=== PATIENT | female | born 1980 | race Caucasian/White ===

== ENCOUNTER 2017-02-05 11:06 | Inpatient (IN) | payer SELFPAY ==
[~2017-02-05] VITALS: Ht 165.1 cm; Wt 67.1 kg
--- NOTE | 2017-02-05 11:06 | NUR ---
Patient was BIBA at this time.
--- NOTE | 2017-02-05 11:14 | NUR ---
Patient ambulated to bed 02 from [facility], [place].
[2017-02-05 11:22] VITALS: BP 121/101
--- NOTE | 2017-02-05 11:34 | NUR ---
PATIENT PRESENTS TO ED DUE TO ABDOMINAL PAIN W/ N/V W/ BRIGHT RED BLOOD X 2 DAYS . PT STATES SHE HAS BLOOD ALSO IN HER STOOL.SKIN IS PINK/WARM/DRY; AAOX4 WITH EVEN AND STEADY GAIT; LUNGS CLEAR BL; HR EVEN AND REGULAR; PT DENIES ANY CP, SOB, OR COUGH AT THIS TIME; PATIENT STATES PAIN OF 10/10 AT THIS TIME;PATIENT POSITIONED FOR COMFORT; HOB ELEVATED; BEDRAILS UP X2; BED DOWN. ALL MONITORS IN PLACED;ER MD MADE AWARE OF PT STATUS.
--- NOTE | 2017-02-05 11:44 | NUR ---
PT HAS A PORT-A- CATH ON RT CHEST;FOR HER CHEMOTHERAPY;LAST ACCESS 1 1/2 MONTHS AGO;
--- NOTE | 2017-02-05 11:48 | NUR ---
PT UNABLE TO GIVE URINE AT THIS TIME;
--- NOTE | 2017-02-05 12:02 | NUR ---
Dr. Ochoa evaluating patient at bedside.
[2017-02-05] MEDS ORDERED: NACL 0.9% 1,000 ML IV ONE ×2 (12:15→21:45)
[2017-02-05] MEDS ORDERED: fentaNYL 0.05 MG/ML VIAL IVP ONE (12:15)
[2017-02-05] MEDS ORDERED: PANTOPRAZOLE 40 MG INJ VIAL IVP ONE (12:15)
--- NOTE | 2017-02-05 12:37 | NUR ---
LAB at bedside.
[2017-02-05 13:07] LABS: BASOPHILS # (AUTO) 0.2 K/uL (0.00-0.22); BASOPHILS % (AUTO) 3.5 % (0.0-2.0); EOSINOPHILS % (AUTO) 0.6 % (0.0-4.0); HEMATOCRIT 33.5 % (36-48); HEMOGLOBIN 11.4 g/dL (12.0-16.0); LYMPHOCYTES # (AUTO) 0.7 K/uL (2.5-16.5); LYMPHOCYTES % (AUTO) 13.8 % (20.5-51.1); MEAN CORPUSCULAR HEMOGLOBIN 30 pg (27-31); MEAN CORPUSCULAR HGB CONC 34 g/dL (33-37); MEAN CORPUSCULAR VOLUME 90 fL (80-94); MONOCYTES # (AUTO) 0.4 K/uL (0.8-1.0); NEUTROPHILS # (AUTO) 3.9 K/uL (1.8-7.7); NEUTROPHILS % (AUTO) 75.1 % (42.2-75.2); PLATELET COUNT (AUTO) 395 K/uL (140-450); RED BLOOD CELL COUNT(AUTO) 3.73 MIL/uL (4.20-5.40); RED CELL DISTRIBUTION WIDTH 17.4 % (11.6-13.7); WHITE BLOOD COUNT (AUTO) 5.2 K/uL (4.8-10.8)
[2017-02-05 13:24] LABS: ALBUMIN 3.3 g/dL (3.4-5.0); ASPARTATE AMINOTRANSFERASE 13 U/L (15-37); CARBON DIOXIDE 23.7 mmol/L (21-32); CHLORIDE 95 mmol/L (98-107); CREATININE 0.7 mg/dL (0.6-1.3); GFR ARICAN-AMERICAN 120 mL/min (>90); GLUCOSE 83 mg/dL (74-106); POTASSIUM 3.7 mmol/L (3.5-5.1); SODIUM SERUM 128 mmol/L (136-145); TOTAL BILIRUBIN 0.3 mg/dL (0.0-1.0); UREA NITROGEN, BLOOD 7 mg/dL (7-18)
[2017-02-05 13:29] LABS: SALICYLATE < 2.8 mg/dL (2.8-20.0)
[2017-02-05 13:30] LABS: ACETAMINOPHEN < 0.5 ug/ml (10-30)
[2017-02-05 13:41] LABS: BARBITURATE, URINE NEG. ng/ml (NEG <=200); BENZODIAZEPINE, URINE NEG. ng/mL (NEG <=200); CANNABINOID, URINE NEG. ng/mL (NEG <=50); COCAINE, URINE NEG. ng/mL (NEG <=300); OPIATE, URINE NEG. ng/mL (NEG <=2000); PHENCYCLIDINE SCREEN,URINE NEG. ng/mL (NEG <=25)
[2017-02-05] MEDS ORDERED: ONDANSETRON 4 MG/2 ML VIAL IVP ONE (13:50)
[2017-02-05] MEDS: NACL 0.9% 1,000 ML IV SCH (13:57)
[2017-02-05] MEDS ORDERED: HYDROcodone/APAP 7.5/325 MG 1 TAB PO PRN (14:00)
[2017-02-05] MEDS ORDERED: LORazepam 2 MG/ML VIAL IVP PRN (14:00)
[2017-02-05] MEDS ORDERED: LEVE750T25 PO (14:24)
[2017-02-05] MEDS ORDERED: LORA-476 PO (14:26)
--- NOTE | 2017-02-05 14:28 | NUR ---
TRIED TO GIVE REPORT;SUMA ESPINO ON BREAK;HE WILL CALL BACK AFTER HIS BREAK;
[2017-02-05 14:40] LABS: PROTHROMBIN TIME 10.2 secs (10.8-13.4)
[2017-02-05 14:47] LABS: APPEARANCE,URINE CLEAR (CLEAR); BILIRUBIN,URINE NEGATIVE (NEGATIVE); BLOOD, URINE NEGATIVE (NEGATIVE); COLOR,URINE ORANGE (YELLOW); LEUKOCYTE ESTERASE ,URINE NEGATIVE (NEGATIVE); NITRITE, URINE NEGATIVE (NEGATIVE); UGLUCOSE NEGATIVE (NEGATIVE)
[2017-02-05 14:53] LABS: AMYLASE 49 U/L (25-115); CHOL/HDL RATIO 2.4 (1-4.5); FREE T4 (FREE THYROXINE) 0.95 ng/dL (0.76-1.46); HDL CHOLESTEROL 74 mg/dL (40-60); LDL (CALC) 93 mg/dL (60-100); LIPASE 103 U/L (73-393); MAGNESIUM 2.1 mg/dL (1.8-2.4); PHOSPHORUS 3.4 mg/dL (2.5-4.9); THYROID STIMULATING HORMONE 0.16 uIU/mL (0.34-3.74); TRIGLYCERIDES 46 mg/dL (30-150)
--- NOTE | 2017-02-05 14:56 | NUR ---
Patient will be admitted to care of DR TERESA. Admited to TELE. Will go to room 104 B. Belongings list completed. Report to SUMA HUITRON.
[2017-02-05 15:10] VITALS: BP 129/74
--- NOTE | 2017-02-05 15:10 | NUR ---
RECEIVED PT ON ANDREA FROM ER. PT IS AAOX4 AND SHOWS NO S/S OF ACUTE DISTRESS ON ROOM AIR. ON TELE MONITOR. PT HAS PORTACATH ON THE RT UPPER CHEST PATENT AND INTACT WITH IVF'S INFUSING WELL. NOTED LEFT UPPER ARM ABSCESS; OTHERWISE, SKIN IS INTACT, WARM, DRY, AND GOOD TURGOR. PT STATED LBM WAS Sunday02/03/17. PT STATES CHRONIC ABD PAIN AND 10/10 LEFT UPPER ARM PAIN. PT WAS EXPLAINED POC FOR TODAY AND VERBALIZED UNDERSTANDING. THE BED IS IN LOW POSITION WITH CALL LIGHT WITHIN REACH.
[2017-02-05] MEDS ORDERED: diphenhydrAMINE 50 MG/ML VIAL IVP SCH (15:26)
[2017-02-05] MEDS: MORPHINE SULFATE 4 MG/ML SYR IVP PRN ×2 (15:43→20:09)
--- NOTE | 2017-02-05 15:43 | NUR ---
PT C/O ITCHINESS AND PAIN AT LEFT UPPER ARM 10/10. GAVE MORPHINE 4 MG IVP AND BENADRYL 25 MG IVP. WILL REASSESS PAIN IN 30 MIN.
--- NOTE | 2017-02-05 16:12 | NUR ---
PT STATES PAIN OF 6/10 LEFT UA PAIN.
[2017-02-05] MEDS ORDERED: ONDANSETRON 4 MG/2 ML VIAL IVP PRN (18:00)
--- NOTE | 2017-02-05 18:30 | NUR ---
PT IS AAOX4 AND SHOWS NO S/S OF ACUTE DISTRESS ON ROOM AIR. ALL OF PT'S NEEDS MET AT THIS TIME. WILL CONTINUE TO MONITOR.
--- NOTE | 2017-02-05 19:20 | NUR ---
RECEIVED PT FROM JOSE CRUZ MOISE PT IS AAOX4 RESTING ON BED PAD ON RAIL PRECAUTIONS FOR SEIZURES IV INFUSING WELL ON RT PORT CATH PT HAS ABSCESS ON LEFT UPPER ARM REDNESS ON TELEMETRY SR INITIAL ASSESSMENT DONE
--- NOTE | 2017-02-05 19:20 | NUR ---
GAVE PT REPORT AT BEDSIDE TO NIGHT NURSE. PT ENDORSED IN STABLE CONDITION.
[2017-02-05 20:00] VITALS: BP 112/80
--- NOTE | 2017-02-05 20:00 | NUR ---
DR FIELD WAS NOTIFY PT CONDITION AND DR FIELD IS GETTING READY FOR INCISION AND DRAINAGE ON LEFT UPPER ARM ABSCESS
[2017-02-05] MEDS: DOCUSATE SODIUM 100 MG GELCAP PO SCH (20:10)
[2017-02-05] MEDS: LORazepam 1 MG TAB PO SCH (20:11)
[2017-02-05] MEDS: levETIRAcetam 500 MG TAB PO SCH (20:11)
[2017-02-05] MEDS: CLINDAMYCIN 600 MG in DEXTROSE 5% 50 ML IV SCH (20:12)
[2017-02-05] MEDS ORDERED: LIDOCAINE 1% 50 ML ONE (20:25)
[2017-02-05] MEDS ORDERED: CLINDAMYCIN 600 MG in DEXTROSE 5% 50 ML IV SCH (21:00)
--- NOTE | 2017-02-05 21:19 | NUR ---
PT WAS CALLED RAPID RESPOND AFTER PT WAS GIVEN LIDOCAINE1% 2 ML SUBQ FOR PREPARATION OF INCISION AND DRAINAGE OF LEFT UPPER ARM ABSCESS, SWEATING AND BLOOD PRESSURE DROP OFF TO 82/39 AND HR 34 PT WAS ALERT RESPONDING TO COMMANDS AND REPOSITIONED IN TRENDELENBURG AND IV FLUIDS BOLUS GIVEN ORDER AND O2 FINISHED GOODS STOCK CL[facility] NURSES AND ICU NURSES AND CHARGE NURSE AT BED SIDE
--- NOTE | 2017-02-05 21:25 | NUR ---
TELEMETRY BACK TO SR HR 61 AND BLOOD PRESSURE 106/62, 02 SAT 100% PT SEEM MORE STBLE AT THIS TIME
--- NOTE | 2017-02-05 22:00 | NUR ---
PT REFUSED TO BE DRAW BLOOD DR CASTORENA AWARE
[2017-02-05] MEDS: QUEtiapine FUMARATE 100 MG TAB PO SCH ×2 (22:40→23:17)
[2017-02-05] MEDS ORDERED: LACTULOSE 20 GM/30 ML UDC PO SCH (23:10)
[2017-02-05] MEDS: LACTULOSE 20 GM/30 ML UDC PO SCH (23:18)
[2017-02-05] MEDS: ACETAMINOPHEN 325 MG TAB PO PRN (23:18)
--- NOTE | 2017-02-05 23:19 | NUR ---
PT VERBALIZED TO WILL TAKE SEROQUEL AND AT THE TIME TO GIVE IT SHE THROUGH IT AWAY TO THE FLOOR CHARGE NURSE AWRE SUSAN SUSAN MEDIC WAS WASTE
--- NOTE | 2017-02-06 | NUR ---
PT SLEEPING QUIET, ON TELEMETRY SR HR 79 , 02 SAT 99%PT REFUSED TO BE TAKEN BLOOD PRESSURE
[2017-02-06 02:06] VITALS: BP 119/78
[2017-02-06] MEDS: MORPHINE SULFATE 4 MG/ML SYR IVP PRN ×3 (02:16→11:00)
[2017-02-06] MEDS: NACL 0.9% 1,000 ML IV SCH ×3 (02:50→20:47)
--- NOTE | 2017-02-06 03:45 | NUR ---
after pain medic givern pt on deep sleep, , on telemetry sr pt npo for egd this am and i and d of left upper arm
[2017-02-06] MEDS: CLINDAMYCIN 600 MG in DEXTROSE 5% 50 ML IV SCH ×3 (04:40→21:55)
[2017-02-06 06:47] LABS: BASOPHILS # (AUTO) 0.1 K/uL (0.00-0.22); BASOPHILS % (AUTO) 1.5 % (0.0-2.0); EOSINOPHILS % (AUTO) 0.8 % (0.0-4.0); HEMATOCRIT 31.6 % (36-48); HEMOGLOBIN 10.3 g/dL (12.0-16.0); LYMPHOCYTES # (AUTO) 0.6 K/uL (2.5-16.5); LYMPHOCYTES % (AUTO) 14.4 % (20.5-51.1); MEAN CORPUSCULAR HEMOGLOBIN 30 pg (27-31); MEAN CORPUSCULAR HGB CONC 33 g/dL (33-37); MEAN CORPUSCULAR VOLUME 91 fL (80-94); MONOCYTES # (AUTO) 0.4 K/uL (0.8-1.0); MONOCYTES % (AUTO) 8.4 % (1.7-9.3); NEUTROPHILS # (AUTO) 3.2 K/uL (1.8-7.7); NEUTROPHILS % (AUTO) 74.9 % (42.2-75.2); PLATELET COUNT (AUTO) 357 K/uL (140-450); RED BLOOD CELL COUNT(AUTO) 3.46 MIL/uL (4.20-5.40); WHITE BLOOD COUNT (AUTO) 4.3 K/uL (4.8-10.8)
[2017-02-06] MEDS: LORazepam 1 MG TAB PO SCH ×3 (06:53→21:00)
--- NOTE | 2017-02-06 07:03 | NUR ---
PAIN MEDIC GIVEN PT WILL BE ENDORSED TO DAY SHIFT NURSE TO CONTINUITY OF CARE PT NPO FOR EGD
[2017-02-06 07:06] LABS: ANION GAP 13.2 (8-16); CARBON DIOXIDE 21.5 mmol/L (21-32); CREATININE 0.7 mg/dL (0.6-1.3); POTASSIUM 4.7 mmol/L (3.5-5.1)
--- NOTE | 2017-02-06 07:10 | NUR ---
RECEIVED PATIENT REPORT AT BEDSIDE. PATIENT AWAKE, ALERT AND ORIENTED. NO S/S OF DISTRESS NOTED. NO ACTIVE VOMITING AT THIS MOMENT. LJ CATH NOTED ON THE RIGHT UPPER CHEST WITH IVF INFUSING WELL. ABSCESS NOTED ON THE LEFT PER ARM. PATIENT ON SEIZURE PRECAUTION. PATIENT ON TELE MONITORING. BED LOWERED WITH CALL LIGHT WITHIN REACH. WILL CONTINUE TO MONITOR
[2017-02-06 07:19] LABS: PHOSPHORUS 4.9 mg/dL (2.5-4.9)
[2017-02-06 07:46] VITALS: BP 90/60
[2017-02-06] MEDS ORDERED: diphenhydrAMINE 50 MG/ML VIAL IVP SCH ×3 (08:10→21:00)
[2017-02-06] MEDS: QUEtiapine FUMARATE 100 MG TAB PO SCH ×2 (08:24→21:00)
[2017-02-06] MEDS: LACTULOSE 20 GM/30 ML UDC PO SCH ×2 (08:24→17:00)
[2017-02-06] MEDS: levETIRAcetam 500 MG TAB PO SCH ×2 (08:26→21:00)
[2017-02-06] MEDS: LACTOBACILLUS RHAMNOSUS GG 1 EACH CAP PO SCH (08:26)
[2017-02-06] MEDS: DOCUSATE SODIUM 100 MG GELCAP PO SCH (08:27)
[2017-02-06] MEDS: MULTIVITAMIN 1 TAB PO SCH (09:00)
[2017-02-06] MEDS: FOLIC ACID 1 MG TAB PO SCH (09:00)
[2017-02-06] MEDS ORDERED: PANTOPRAZOLE 40 MG INJ VIAL IVP SCH (09:00)
[2017-02-06] MEDS: THIAMINE 100 MG TAB PO SCH (09:00)
--- NOTE | 2017-02-06 10:07 | NUR ---
PATIENT HAS BEEN SCREENED AND CATEGORIZED HIGH NUTRITION RISK. PATIENT WILL BE SEEN WITHIN 1-2 DAYS OF ADMISSION. 02/06/17-02/07/[address]
[2017-02-06 12:00] VITALS: BP 103/77
--- NOTE | 2017-02-06 13:45 | NUR ---
PATIENT LEFT THE UNIT FOR EGD
[2017-02-06] MEDS ORDERED: diphenhydrAMINE 50 MG/ML VIAL ONE (13:50)
[2017-02-06] MEDS ORDERED: fentaNYL 0.05 MG/ML VIAL ONE ×2 (13:52)
[2017-02-06] MEDS ORDERED: MIDAZOLAM 2 MG/2 ML VIAL ONE (13:52)
--- NOTE | 2017-02-06 14:39 | NUR ---
02/06/17 RD INITIAL ASSESSMENT COMPLETED PLEASE REFER TO NUTRITION ASSESSMENT UNDER CARE ACTIVITY FOR ESTIMATED NUTRITIONAL NEEDS. 1. CONTINUE NPO MEDICALLY NECESSARY PER MD 2. WHEN MEDICALLY APPROPRIATE CONSIDER ADVANCE DIET TO REGULAR 3. ENCOURAGE INCREASED PO INTAKES 4. RD TO FOLLOW-UP 3-5 DAYS, MODERATE RISK DHRUV PRYOR, RD
[2017-02-06] MEDS ORDERED: MIDAZOLAM 2 MG/2 ML VIAL IVP ONE (14:40)
[2017-02-06] MEDS ORDERED: fentaNYL 0.05 MG/ML VIAL IVP ONE (14:40)
[2017-02-06] MEDS ORDERED: diphenhydrAMINE 50 MG/ML VIAL IVP ONE (14:40)
[2017-02-06] MEDS ORDERED: LIDOCAINE 1% 500 MG/50 ML VIAL INJ SCH (15:25)
[2017-02-06] MEDS: LORazepam 2 MG/ML VIAL IM/IVP PRN ×3 (15:52→22:00)
[2017-02-06 16:00] VITALS: BP 112/71
[2017-02-06] MEDS ORDERED: HYDROmorphone PFS 4 MG/ML SYR IVP SCH (16:00)
--- NOTE | 2017-02-06 16:10 | NUR ---
INCISION AND DRAINAGE OF LEFT UPPER ARM ABSCESS DONE AT BEDSIDE BY DR FLORES
[2017-02-06] MEDS: PREGABALIN 50 MG CAP PO SCH (16:59)
[2017-02-06] MEDS ORDERED: PREGABALIN 50 MG CAP PO SCH (17:00)
[2017-02-06] MEDS ORDERED: ZOLPIDEM 5 MG TAB PO PRN (17:50)
--- NOTE | 2017-02-06 19:26 | NUR ---
RECEIVED REPORT FROM DAY NURSE, PT IN STABLE CONDITION. PT IS IN STABLE CONDITION. PT IS AAOX4, ON RA AT THIS TIME. PT HAS RT CHEST PORT CATH PATENT AND INTACT. L ARM S/P I&D WITH DRESSING DRY AND INTACT. RESPIRATIONS ARE EVEN AND UNLABORED, BOWEL SOUNDS PRESENT. SKIN IS WARM AND DRY TO TOUCH, INITIAL ASSESSMENT COMPLETED, PLAN OF CARE DISCUSSED WITH PT AT THE BEDSIDE VERBALIZED UNDERSTANDING. ALL SAFETY PRECAUTIONS MET, CALL LIGHT WITHIN REACH
[2017-02-06 20:00] VITALS: BP 111/62
[2017-02-06] MEDS ORDERED: LORazepam 2 MG/ML VIAL IVP SCH (20:45)
[2017-02-06] MEDS ORDERED: HALOPERIDOL IM 5 MG/ML VIAL IM SCH (20:45)
--- NOTE | 2017-02-06 20:55 | NUR ---
PT COMBATIVE, RUNNING AROUND THE UNIT YELLING AND SCREAMING STATING, "I CAN'T SWALLOW." PT YELLING VERBAL SLURS AND NOT COOPERATIVE.
[2017-02-06] MEDS: AMITRIPTYLINE 25 MG TAB PO SCH (21:00)
[2017-02-06] MEDS: ZOLPIDEM 5 MG TAB PO SCH (21:00)
--- NOTE | 2017-02-06 21:00 | NUR ---
CODE MICHAEL CALLED, PT COMBATIVE AT THIS TIME, PUSHING AND YELLING
--- NOTE | 2017-02-06 21:45 | NUR ---
PT REFUSED HALOPERIDOL, PT PT REFUSES ALL MEDICATION EXCEPT ATIVAN AT THIS TIME
[2017-02-06] MEDS ORDERED: HYDROmorphone PFS 2 MG/ML SYR IVP PRN (22:00)
--- NOTE | 2017-02-06 22:00 | NUR ---
DR FIELD AT BEDSIDE. PT YELLING AND COMBATIVE TO STAFF, AGREED TO TAKE ATIVAN IVP, STATING "I WANT ATIVAN." ADMINISTERED ATIVAN IVP WITH EDUCATION FOR AGITATION PER DR FIELD. PT TOLERATED WELL.
--- NOTE | 2017-02-06 22:01 | NUR ---
PT REFUSES TO SWALLOW ALL PO MEDICATION AND STATES, "THE PILLS GO TO THE BACK OF MY HEAD AND EYEBALLS, I FORGOT HOW TO SWALLOW."
[2017-02-07] VITALS: BP 106/72
[2017-02-07] MEDS ORDERED: MORPHINE SULFATE 2 MG/ML SYR IVP ONE (00:50)
--- NOTE | 2017-02-07 01:00 | NUR ---
PT PACING UNIT YELLING FOR MEDICATION THAT SHE DOES NOT HAVE ORDERED. PT BEING UNCOOPERATIVE AND COMBATIVE, PT AT MY COMPUTER YELLING
[2017-02-07] MEDS ORDERED: MORPHINE SULFATE 2 MG/ML SYR ONE (01:01)
[2017-02-07] MEDS: ZOLPIDEM 5 MG TAB PO SCH (01:12)
--- NOTE | 2017-02-07 01:13 | NUR ---
CHARGE NURSE JAY JAY IN ROOM TO GIVE MORPHINE PER DR. FIELD ORDERS AT THE BEDSIDE
[2017-02-07] MEDS: LORazepam 2 MG/ML VIAL IM/IVP PRN (01:44)
--- NOTE | 2017-02-07 01:52 | NUR ---
DR. FIELD ORDERED TO GIVE ATIVAN AND RANDAL
[2017-02-07] MEDS ORDERED: diphenhydrAMINE 50 MG/ML VIAL IVP ONE ×2 (01:55→02:55)
--- NOTE | 2017-02-07 02:15 | NUR ---
PT COMBATIVE RUNNING DOWN HALLWAY YELLING "I WILL KICK HER ASS!" PT CHASING AFTER JALIL CARRILLO. PT TRYING TO BE COMBATIVE WITH JALIL CARRILLO, PT WILL NOT COOPERATE. PT YELLING AND CUSSING IN HALLWAYS
--- NOTE | 2017-02-07 02:17 | NUR ---
SOPHIE RODRIGUEZ CALLED AGAIN. SECURITY WITH PT
--- NOTE | 2017-02-07 02:30 | NUR ---
FURNITURE SALESPERSON TAWANDA BURNS Addendum: 02/07/17 at 0436 by Jazmine Mcarthur RN CORRECTION: POLICE DEPARTMENT CALLED TO SPEAK WITH TAWANDA
--- NOTE | 2017-02-07 02:52 | NUR ---
POLICE HERE WITH PT
[2017-02-07] MEDS ORDERED: LORazepam 2 MG/ML VIAL IM/IVP ONE (02:55)
[2017-02-07] MEDS ORDERED: HALOPERIDOL IM 5 MG/ML VIAL IM ONE (02:55)
--- NOTE | 2017-02-07 03:30 | NUR ---
PT STILL CONTINUES TO WALK UNIT YELLING AND BEING UNCOOPERATIVE. PT IS NAKED AND WALKING AROUND.
[2017-02-07 04:00] VITALS: BP 102/62
[2017-02-07] MEDS: oxyCODONE/APAP 5/325 MG 1 TAB TAB PO PRN ×3 (04:06→17:29)
[2017-02-07] MEDS: CLINDAMYCIN 600 MG in DEXTROSE 5% 50 ML IV SCH ×3 (05:27→21:31)
[2017-02-07] MEDS: LORazepam 1 MG TAB PO SCH ×3 (05:27→21:30)
[2017-02-07] MEDS: NACL 0.9% 1,000 ML IV SCH (07:33)
--- NOTE | 2017-02-07 07:33 | NUR ---
REPORT GIVEN TO DAY NURSE AT THE BEDSIDE FOR CONTINUITY OF CARE, PT IN STABLE CONDITION
--- NOTE | 2017-02-07 07:33 | NUR ---
REPORT RECEIVED FROM NIGHT RN, PT ASLEEP IN BED ON ROOM AIR, NO S/S OF ACUTE DISTRESS, IV PATENT AND INTACT, SAFETY PRECAUTIONS TAKEN, CALL LIGHT WITHIN REACH.
[2017-02-07 08:00] VITALS: BP 110/68
[2017-02-07] MEDS ORDERED: DIAZEPAM PFS 10 MG/2 ML SYR IVP PRN ×2 (08:10→11:15)
[2017-02-07] MEDS: FOLIC ACID 1 MG TAB PO SCH (08:26)
[2017-02-07] MEDS: levETIRAcetam 500 MG TAB PO SCH ×2 (08:27→21:31)
[2017-02-07] MEDS: PREGABALIN 50 MG CAP PO SCH ×3 (08:27→16:48)
[2017-02-07] MEDS: LACTULOSE 20 GM/30 ML UDC PO SCH ×3 (08:28→16:48)
[2017-02-07] MEDS: LACTOBACILLUS RHAMNOSUS GG 1 EACH CAP PO SCH (08:28)
[2017-02-07] MEDS: THIAMINE 100 MG TAB PO SCH (08:39)
[2017-02-07] MEDS: MULTIVITAMIN 1 TAB PO SCH (08:39)
[2017-02-07] MEDS: QUEtiapine FUMARATE 100 MG TAB PO SCH ×2 (08:39→21:31)
--- NOTE | 2017-02-07 08:41 | NUR ---
AM MEDICATIONS GIVEN. PT REFUSED VITAMINS, PROTONIX AND SEROQUEL. PT STATES SHE FEELS ANXIOUS. NO S/S OF ACUTE DISTRESS. VALIUM GIVEN ORDERED. WILL CONTINUE TO MONITOR.
--- NOTE | 2017-02-07 10:18 | NUR ---
PT STATES SHE WANTS TO SPEAK TO MD. DR. PAREKH MADE AWARE. PT STATES SHE IS IN PAIN. PAIN MEDICATION GIVEN. WILL CONTINUE TO MONITOR
[2017-02-07] MEDS: diphenhydrAMINE 50 MG CAP PO PRN ×2 (11:16→17:29)
[2017-02-07] MEDS ORDERED: HALOPERIDOL IM 5 MG/ML VIAL IM PRN (11:20)
--- NOTE | 2017-02-07 13:05 | NUR ---
PT SLEEPING IN BED. NO S/S OF ACUTE DISTRESS. WILL CONTINUE TO MONITOR.
[2017-02-07 16:00] VITALS: BP 109/79
[2017-02-07] MEDS: DIAZEPAM PFS 10 MG/2 ML SYR IVP PRN ×2 (16:47→21:48)
--- NOTE | 2017-02-07 17:20 | NUR ---
CR. LAUREN IN TO SEE PT
--- NOTE | 2017-02-07 19:15 | NUR ---
ENDORSED CARE TO NIGHT RN, PT IN STABLE CONDITION.
--- NOTE | 2017-02-07 19:20 | NUR ---
RECEIVED REPORT FROM DAY SHIFT NURSE. PT LYING IN BED, CALM AND COMFORTABLE. AAOX4. PORT-A-CATH TO RIGHT UPPER CHEST. DRESSING TO LEFT UPPER ARM. . DISCUSSED PLAN OF CARE, PT VERBALIZED UNDERSTANDING. SAFETY PRECAUTION IN PLACE. CALL LIGHT WITHIN REACH.
[2017-02-07] MEDS: AMITRIPTYLINE 25 MG TAB PO SCH (21:31)
--- NOTE | 2017-02-07 21:50 | NUR ---
PT ASKED FOR VALIUM. PT STATED SHE FEELS ANXIOUS AND NEED VALIUM BADLY. VALIUM GIVEN ORDERED.
--- NOTE | 2017-02-07 22:00 | NUR ---
PT REFUSED CHANGE OF DRESSING TO LEFT UPPER ARM.
--- NOTE | 2017-02-08 00:10 | NUR ---
PT IN BED. NO C/O PAIN OR DISCOMFORT. ALL NEEDS MET AT THIS TIME. CALL LIGHT WITHIN REACH.
--- NOTE | 2017-02-08 02:06 | NUR ---
PT IN BED WATCHING TV. NO DISTRESS NOTED. ALLL NEEDS MET AT THIS TIME. CALL LIGHT WITHIN REACH.
[2017-02-08 04:00] VITALS: BP 110/72
[2017-02-08] MEDS: DIAZEPAM PFS 10 MG/2 ML SYR IVP PRN (04:36)
[2017-02-08] MEDS: diphenhydrAMINE 50 MG CAP PO PRN (04:37)
[2017-02-08] MEDS: oxyCODONE/APAP 5/325 MG 1 TAB TAB PO PRN ×2 (04:37→10:54)
[2017-02-08] MEDS: CLINDAMYCIN 600 MG in DEXTROSE 5% 50 ML IV SCH (04:39)
--- NOTE | 2017-02-08 04:47 | NUR ---
PT STATED SHE'S ANXIOUS AND ITCHY. VALIUM AND BENADRYL GIVEN ORDERED.
[2017-02-08] MEDS ORDERED: PANTOPRAZOLE 40 MG TABEC PO SCH (06:30)
[2017-02-08] MEDS ORDERED: QUET100T44 PO (07:05)
[2017-02-08] MEDS ORDERED: PANT40EC28 PO (07:05)
[2017-02-08] MEDS ORDERED: ACET-9494 PO (07:05)
[2017-02-08] MEDS ORDERED: LACT10CA PO (07:05)
[2017-02-08] MEDS ORDERED: LYR50 PO (07:05)
[2017-02-08] MEDS ORDERED: ELA25 PO (07:05)
[2017-02-08] MEDS ORDERED: DIAZ2TAB6 PO (07:06)
[2017-02-08] MEDS ORDERED: CLIN300C2 PO (07:10)
--- NOTE | 2017-02-08 07:20 | NUR ---
ENDORSED PT TO DAY SHIFT NURSE. PT IN STABLE CONDITION.
--- NOTE | 2017-02-08 07:21 | NUR ---
RECEIVED REPORT FROM THE CLERK SECRETARY NURSE FOR CONTINUITY OF CARE. PT IS AWAKE AND ALERT. SHE IS ROAMING THE HALLS WITH HER IV POLE, LOOKING FOR A RN, STATING SHE NEEDS HER MEDICATIONS. PT HAS A L UA DRESSING, SOILED. I WILL SEE IF SHE WILL ALLOW ME TO DO THE DRESSING CHANGE. SHE HAS A R CHEST PORT-A-CATH TKO. PLAN FOR TODAY: D/C TODAY. ALERT SECURITY. WILL CONTINUE TO MONITOR PT.
[2017-02-08] MEDS ORDERED: LACT10SO1 PO (07:48)
[2017-02-08] MEDS: PREGABALIN 50 MG CAP PO SCH (08:04)
[2017-02-08] MEDS: levETIRAcetam 500 MG TAB PO SCH (08:05)
[2017-02-08] MEDS: LACTULOSE 20 GM/30 ML UDC PO SCH (08:05)
[2017-02-08] MEDS: QUEtiapine FUMARATE 100 MG TAB PO SCH (08:06)
[2017-02-08] MEDS: LACTOBACILLUS RHAMNOSUS GG 1 EACH CAP PO SCH (08:06)
--- NOTE | 2017-02-08 08:15 | NUR ---
ADMINISTERED MORNING MEDS. PT TOLERATED WELL. SHE WAS REQUESTING THE VALIUM, PERCOCET, AND BENADRYL. NOT TIME YET. PT REQUESTED TYLENOL FOR MIKE. WILL ADMINISTER.
[2017-02-08] MEDS: ACETAMINOPHEN 325 MG TAB PO PRN (08:21)
--- NOTE | 2017-02-08 08:25 | NUR ---
ADMINISTERED TYLENOL FOR MIKE. PT TOLERATED WELL. WILL CONTINUE TO MONITOR.
--- NOTE | 2017-02-08 11:00 | NUR ---
REFUSED D/C INSTRUCTIONS. REFUSED TO SIGN PAPER WORK. ONLY INTERESTED IN RX. WENT OVER THE RX THAT WROTE. REMOVED NEEDLE FROM PORT-A-CATH. ISLAND DRESSING ON. CHANGED DRESSING ON L UPPER ARM. REMOVED ARM BAND. REFUSED WOUND CARE. REFUSED PICTURE. PT VERBALLY ABUSIVE. "GET OUT OF MY ROOM NOW." CALLED SECURITY FOR ASSISTANCE. ASKED HER TO GET DRESSED.
--- NOTE | 2017-02-08 11:20 | NUR ---
PT ESCORTED OUT INTO THE LOBBY BY 2 SECURITY GUARDS AND MYSELF. WHEELED CHAIRED HER OUT INTO THE FRONT OF THE HOSPITAL. PT HAS HER D/C PACKET, RX, AND 2 BUS VOUCHERS IN HAND. ALL PERSONAL BELONGINGS WITH HER. PT IN STABLE CONDITION.
[2017-02-09 12:24] LABS: FOLIC ACID 11.2 ng/mL (>3.0)
== END 2017-02-08 11:20 | disposition home or self-care (01) | DRG 377 ==
LOC: MED 11:06 → MTU 14:00
PROVIDERS: ADMIT Family Medicine; ATTEND Family Medicine
PROC: 0DB68ZX Excision of Stomach, Via Natural or Artificial Opening Endoscopic, Diagnostic (ICD-10-PCS; principal; 2017-02-07)
DX: K92.0 Hematemesis (principal); G93.41 Metabolic encephalopathy; E44.0 Moderate protein-calorie malnutrition; E87.1 Hypo-osmolality and hyponatremia; E83.51 Hypocalcemia; F11.20 Opioid dependence, uncomplicated; F31.64 Bipolar disorder, current episode mixed, severe, with psychotic features; R45.851 Suicidal ideations; D62 Acute posthemorrhagic anemia; L02.414 Cutaneous abscess of left upper limb; F15.129 Other stimulant abuse with intoxication, unspecified; K20.9 Esophagitis, unspecified; F60.3 Borderline personality disorder; F17.210 Nicotine dependence, cigarettes, uncomplicated; T41.3X5A Adverse effect of local anesthetics, initial encounter; G89.29 Other chronic pain; G40.909 Epilepsy, unspecified, not intractable, without status epilepticus; M79.7 Fibromyalgia; Z88.0 Allergy status to penicillin; Z88.8 Allergy status to other drugs, medicaments and biological substances; Z85.038 Personal history of other malignant neoplasm of large intestine; Z68.24 Body mass index [BMI] 24.0-24.9, adult; Z91.14 Patient's other noncompliance with medication regimen; Z59.0 Homelessness; Z90.49 Acquired absence of other specified parts of digestive tract; Z90.722 Acquired absence of ovaries, bilateral; Z85.830 Personal history of malignant neoplasm of bone; Z15.09 Genetic susceptibility to other malignant neoplasm; Y92.89 Other specified places as the place of occurrence of the external cause
CPT/HCPCS: 36415; 71010; 76536; 80048; 80053; 80173; 80305; 81003; 82140; 82150; 82607; 82728; 82746; 82948; 83036; 83540; 83690; 83735; 83880; 84100; 84439; 84443; 84484; 85025; 85045; 85610; 85730; 86677; 87040; 87070; 87075; 87081; 93005; 96361; 96374; 96375; 99285; C9113; G0480; G0482; J1170; J1200; J1630; J2001; J2060; J2250; J2270; J2405; J3010; J3360; J3490; J7030; J7060; Q0092; Q0163

== ENCOUNTER 2017-02-08 12:02 | Inpatient (IN) | payer SELFPAY ==
[~2017-02-08] VITALS: Ht 165.1 cm; Wt 65.3 kg
[~2017-02-08 12:02] MED LIST: ACET-9494 PO; CLIN300C2 PO; DIAZ2TAB6 PO; ELA25 PO; LACT10CA PO; LACT10SO1 PO; LEVE750T25 PO; LORA-476 PO; LYR50 PO; PANT40EC28 PO; QUET100T44 PO
[2017-02-08 12:31] VITALS: BP 123/64
--- NOTE | 2017-02-08 12:32 | NUR ---
37/F BIBA PER PATIENT JUST GOT DISCHARGED FROM [facility] X TODAY.PATIENT STATED SHE IS SUICIDAL,WOULD GO ONTO TRAFFIC AND WILL HURT HERSELF. PER PATIENT,NOT TAKING ANY MEDS. KELL MADE AWARE.RT. UPPER CHEST PORTACATH.SKIN INFECTION LT. UPPER ARM.HX: EPILEPSY,COLON CANCER,HYSTERECTOMY. DENIES N/V/D; SKIN IS PINK/WARM/DRY; AAOX4 WITH EVEN AND STEADY GAIT; LUNGS CLEAR BL; PT DENIES ANY FEVER, CP, SOB, OR COUGH AT THIS TIME; PATIENT STATES PAIN OF 0/10 AT THIS TIME; PATIENT POSITIONED FOR COMFORT; HOB ELEVATED; BEDRAILS UP X2; BED DOWN. ER MADE AWARE OF PT STATUS. Addendum: 02/08/17 at 1454 by [email or web address] L SHOULDER I&D WOUND COVER WITH GAUZE.
--- NOTE | 2017-02-08 13:39 | NUR ---
Patient appears to be SLEEPING comfortably in bed. BP 103/60, P 118/MINS, Respirations even and unlabored.WILL CONTINUE TO MONITOR.
[2017-02-08 13:49] LABS: ANION GAP 13.2 (8-16); CHLORIDE 103 mmol/L (98-107); CREATININE 0.9 mg/dL (0.6-1.3); GFR ARICAN-AMERICAN 90 mL/min (>90); GLUCOSE 117 mg/dL (74-106); POTASSIUM 4.2 mmol/L (3.5-5.1); SODIUM SERUM 139 mmol/L (136-145); UREA NITROGEN, BLOOD 18 mg/dL (7-18)
--- NOTE | 2017-02-08 13:50 | NUR ---
PT DRANK 1/2 CUP OF WATER & 1 BOTTLE OF APPLE JUICE. DENIES N/V.
[2017-02-08 13:53] LABS: BASOPHILS # (AUTO) 0.4 K/uL (0.00-0.22); BASOPHILS % (AUTO) 3.5 % (0.0-2.0); EOSINOPHILS # (AUTO) 0.1 K/uL (0-0.4); EOSINOPHILS % (AUTO) 0.8 % (0.0-4.0); HEMOGLOBIN 9.2 g/dL (12.0-16.0); LYMPHOCYTES # (AUTO) 0.7 K/uL (2.5-16.5); LYMPHOCYTES % (AUTO) 6.1 % (20.5-51.1); MEAN CORPUSCULAR HEMOGLOBIN 30 pg (27-31); MEAN CORPUSCULAR HGB CONC 33 g/dL (33-37); MEAN CORPUSCULAR VOLUME 92 fL (80-94); MONOCYTES # (AUTO) 0.2 K/uL (0.8-1.0); MONOCYTES % (AUTO) 1.6 % (1.7-9.3); NEUTROPHILS # (AUTO) 10.1 K/uL (1.8-7.7); PLATELET COUNT (AUTO) 282 K/uL (140-450); RED BLOOD CELL COUNT(AUTO) 3.06 MIL/uL (4.20-5.40); RED CELL DISTRIBUTION WIDTH 17.7 % (11.6-13.7); WHITE BLOOD COUNT (AUTO) 11.5 K/uL (4.8-10.8)
[2017-02-08 13:55] LABS: ACETAMINOPHEN 8.3 ug/ml (10-30); ALBUMIN 2.5 g/dL (3.4-5.0); ASPARTATE AMINOTRANSFERASE 12 U/L (15-37); TOTAL BILIRUBIN 0.1 mg/dL (0.0-1.0)
[2017-02-08 13:56] LABS: SALICYLATE < 2.8 mg/dL (2.8-20.0)
--- NOTE | 2017-02-08 14:00 | NUR ---
RADHA BROUSSARD FOR ; PT REFUED. NOTIFIED DR WEINBERG. Addendum: 02/08/17 at 1412 by [email or web address] PT STATED " DON'T TOUCH ME".
--- NOTE | 2017-02-08 14:43 | NUR ---
EVERETTE CATH; SENT URINE SPECIMEN TO LAB.
[2017-02-08] MEDS ORDERED: NACL 0.9% 1,000 ML IV ONE (14:55)
[2017-02-08] MEDS ORDERED: ONDANSETRON 4 MG/2 ML VIAL IVP ONE (14:55)
[2017-02-08] MEDS ORDERED: MORPHINE SULFATE 4 MG/ML SYR IVP ONE (14:55)
[2017-02-08] MEDS ORDERED: ONDANSETRON 4 MG/2 ML VIAL IVP PRN (15:00)
[2017-02-08] MEDS ORDERED: ACETAMINOPHEN 325 MG TAB PO PRN (15:00)
[2017-02-08 15:10] LABS: APPEARANCE,URINE CLEAR (CLEAR); BILIRUBIN,URINE NEGATIVE (NEGATIVE); BLOOD, URINE NEGATIVE (NEGATIVE); COLOR,URINE YELLOW (YELLOW); LEUKOCYTE ESTERASE ,URINE TRACE (NEGATIVE); NITRITE, URINE NEGATIVE (NEGATIVE); PH,URINE 6.5 (5.0-9.0); UGLUCOSE NEGATIVE (NEGATIVE)
[2017-02-08 15:24] LABS: BARBITURATE, URINE NEG. ng/ml (NEG <=200); BENZODIAZEPINE, URINE POS. ng/mL (NEG <=200); CANNABINOID, URINE NEG. ng/mL (NEG <=50); COCAINE, URINE NEG. ng/mL (NEG <=300); OPIATE, URINE NEG. ng/mL (NEG <=2000); PHENCYCLIDINE SCREEN,URINE NEG. ng/mL (NEG <=25)
[2017-02-08 15:31] LABS: RBC,URINE 0-5 (RARE) /HPF (0-5); WBC,URINE 0-5 (RARE) /HPF (0-5)
[2017-02-08] MEDS ORDERED: VANCOMYCIN 1,000 MG in DEXTROSE 5% 250 ML IV ONE (15:35)
--- NOTE | 2017-02-08 15:35 | NUR ---
GAVE REPORT TO NORMAN MOISE.
[2017-02-08 15:36] LABS: CHOL/HDL RATIO 3.6 (1-4.5); FREE T4 (FREE THYROXINE) 0.86 ng/dL (0.76-1.46); MAGNESIUM 1.4 mg/dL (1.8-2.4); PHOSPHORUS 4.2 mg/dL (2.5-4.9); THYROID STIMULATING HORMONE 0.45 uIU/mL (0.34-3.74)
[2017-02-08 15:44] LABS: PROTHROMBIN TIME 9.4 secs (10.8-13.4)
[2017-02-08] MEDS ORDERED: VANCOMYCIN 1,000 MG VIAL ONE (15:53)
--- NOTE | 2017-02-08 15:59 | NUR ---
Patient will be admitted to care of DR TERESA. Admited to MS. Will go to room 104B. Belongings list completed. Report to KAY WHITESIDE.
[2017-02-08] MEDS ORDERED: diphenhydrAMINE 50 MG/ML VIAL IVP ONE (16:10)
[2017-02-08] MEDS ORDERED: MAG SULF 2000 MG/WATER PREMIX 50 ML IV ONE (16:10)
[2017-02-08 16:45] VITALS: BP 100/62
--- NOTE | 2017-02-08 16:45 | NUR ---
RECEIVED PT FROM ER. ASSISTED BY ER STAFF PER ANDREA. PT ASLEEP. NO SOB NOTED. AROUSABLE TO VOICE. ALERT ORIENTEDX3. DENIES ANY PAIN OR DISCOMFORT AT THIS TIME. PT AMBULATORY. SAFETY PRECAUTION IN PLACE. CALL LIGHT WITHIN REACH.
[2017-02-08] MEDS: NACL 0.9% 1,000 ML IV SCH (16:50)
--- NOTE | 2017-02-08 18:43 | NUR ---
PT KEPT CLEAN, DRY AND COMFORTABLE, NEEDS ATTENDED. WILL ENDORSE TO NEXT SHIFT, PT ON STABLE CONDITION, FOR CONTINUITY OF CARE.
--- NOTE | 2017-02-08 19:30 | NUR ---
On bed asleep breathing even and unlabored will continue monitoring patient.
--- NOTE | 2017-02-08 20:00 | NUR ---
Patient refused vital signs she said ahe will have it whe i give her night meds.
--- NOTE | 2017-02-08 21:03 | NUR ---
patient still refuse vital signs she want her IV pain meds i told her i already talked to the resident MD and she will come and discuss her meds with her . patient is not happy she refused vital signs as she want all her pain meds to be resume first. Reassurannce given that i will follow up with the MD.
[2017-02-08] MEDS ORDERED: LORazepam 2 MG/ML VIAL IM/IVP PRN (21:10)
[2017-02-08] MEDS ORDERED: HALOPERIDOL IM 5 MG/ML VIAL IM PRN (21:10)
[2017-02-08] MEDS: DOCUSATE SODIUM 100 MG GELCAP PO SCH (21:37)
--- NOTE | 2017-02-08 23:00 | NUR ---
Patient is now fast asleep will continue monitor.
[2017-02-09] VITALS: BP 118/70
[2017-02-09] MEDS: oxyCODONE/APAP 5/325 MG 1 TAB TAB PO PRN ×3 (00:41→17:11)
[2017-02-09] MEDS ORDERED: ZOLPIDEM 10 MG TAB PO SCH (00:50)
[2017-02-09] MEDS: QUEtiapine FUMARATE 100 MG TAB PO SCH ×4 (00:50→21:00)
[2017-02-09] MEDS ORDERED: diphenhydrAMINE 50 MG/ML VIAL IVP SCH ×3 (00:55→16:24)
[2017-02-09] MEDS: CLINDAMYCIN 600 MG in DEXTROSE 5% 50 ML IV SCH ×3 (05:00→20:56)
--- NOTE | 2017-02-09 07:30 | NUR ---
RECEIVED REPORT FROM PHP MAGENTO DEVELOPER NURSE, PT IS SLEEPING IN BED BUT EASILY AWAKEN, PT IS A/OX4, AMBULATORY, PT HAS A LEFT SHOULDER ABSCESS, PT HAS RIGHT SUBCLAVIAN PORT CATH, THERE ARE NO S/S OF RESPIRATORY DISTRESS OR DISCOMFORT NOTED, DISCUSSED PLAN OF CARE WITH PT, SAFETY/FALL PRECAUTIONS ARE IN PLACE, CALL LIGHT WITHIN REACH, WILL CONTINUE TO MONITOR.
[2017-02-09] MEDS ORDERED: CLINDAMYCIN 600 MG/4 ML VIAL ONE (07:38)
--- NOTE | 2017-02-09 08:05 | NUR ---
PATIENT REFUSED MORNING VITAL SIGN CHECK. SHE STATED SHE JUST WANTED TO EAT.
[2017-02-09] MEDS: DOCUSATE SODIUM 100 MG GELCAP PO SCH ×2 (08:23→20:59)
[2017-02-09] MEDS: LORazepam 1 MG TAB PO SCH (08:23)
[2017-02-09] MEDS: LACTOBACILLUS RHAMNOSUS GG 1 EACH CAP PO SCH ×2 (08:23→16:04)
[2017-02-09] MEDS: PREGABALIN 50 MG CAP PO SCH ×3 (08:24→16:00)
[2017-02-09] MEDS: levETIRAcetam 500 MG TAB PO SCH ×3 (08:24→16:00)
--- NOTE | 2017-02-09 08:31 | NUR ---
DUE MEDICATIONS GIVEN, PT AGREED TO HAVE HER VITAL SIGNS CHECKED AT THIS TIME.
--- NOTE | 2017-02-09 08:49 | NUR ---
FNS REFERRAL / CONSULT FOR MALNUTRITION RECEIVED ON 02/09/17. PATIENT HAS BEEN SCREENED AND CATEGORIZED HIGH NUTRITION RISK. PATIENT WILL BE SEEN WITHIN 1-2 DAYS OF ADMISSION. 02/09/17-02/10/17 JESIKA MORFIN MBA, RD
[2017-02-09] MEDS ORDERED: NON-FORMULARY ITEM (Levetiracetam* (Keppra Xr*) 750 MG) PO SCH (09:00)
--- NOTE | 2017-02-09 09:40 | NUR ---
PATIENT REFUSED BLOOD DRAW FROM LAB AT THIS TIME.
[2017-02-09] MEDS: LACTULOSE 20 GM/30 ML UDC PO SCH ×4 (09:48→16:07)
[2017-02-09] MEDS: NACL 0.9% 1,000 ML IV SCH ×2 (10:57→20:57)
--- NOTE | 2017-02-09 11:27 | NUR ---
PT IS RESTING IN BED, NO S/S OF RESPIRATORY DISTRESS OR DISCOMFORT NOTED, CALL LIGHT IS WITHIN REACH.
[2017-02-09 12:00] VITALS: BP 102/64
[2017-02-09 16:00] VITALS: BP 133/74
[2017-02-09] MEDS: DIAZEPAM 5 MG TAB PO PRN (16:00)
--- NOTE | 2017-02-09 16:00 | NUR ---
RN RESEARCH IS AT PATIENT BESIDE WORKING WITH PT.
--- NOTE | 2017-02-09 16:37 | NUR ---
Social Service Note: I faxed inquiry to [facility] phone number , fax , I spoke with Sherie from there. Per Sherie, it will be extremely difficult to find placement for this patient, since she is self pay, no health insurance. She stated they would contact us if they find placement.
--- NOTE | 2017-02-09 17:26 | NUR ---
CALLED RADIOLOGY AND I WAS TOLD THAT EMILY THE NUCLEAR MED TECH WOULD COMING FROM [place] TODAY AND WOULD BE AROUND 1900 TODAY.
--- NOTE | 2017-02-09 19:24 | NUR ---
PER IMAN WITH NUCLEAR MED, VQ PULMONARY SCAN CAN NOT BE DONE WITH VENTILATION HERE AT [facility] BECAUSE IT IS AGAINST PROTOCOL IT CAN ONLY BE DONE AT [facility] OR [facility]. [employer] PHONE NUMBER IS [phone].
--- NOTE | 2017-02-09 19:30 | NUR ---
I LET DR. FIELD KNOW THAT THEY WOULD NOT BE ABLE TO THE VENTILATION VQ PULMONARY SCAN HERE PER IMAN.
--- NOTE | 2017-02-09 19:38 | NUR ---
ENDORSED PT TO DISCOVERY GUIDE NURSE FOR CONTINUITY OF CARE. PT STABLE AT THIS TIME.
--- NOTE | 2017-02-09 19:39 | NUR ---
RECEIVED PT FROM MARIELA MOISE PT IS AAOX4 RESTING ON BED HX D DIMER HIGH 447 PT HAS ORDER VQ TEST CHEST BUT NOT IV ACCES RN, PT HARD STICK DAY SHIFT WAS UNABLE TO INSERT NUCLEAR MEDIC TECH WAITING FOR IV ACCES ER NURSE WILL BE CALL
[2017-02-09 20:00] VITALS: BP 111/70
[2017-02-09] MEDS ORDERED: AMITRIPTYLINE 25 MG TAB PO SCH (21:00)
[2017-02-09] MEDS ORDERED: ZOLPIDEM 5 MG TAB PO SCH (21:00)
--- NOTE | 2017-02-09 21:00 | NUR ---
ER NURSE WAS UNABLE TO INSERT IV PT UNCOOPERATIVE, DR FIELD RESIDENT AWARE
--- NOTE | 2017-02-09 21:10 | NUR ---
NUCLEAR MEDIC TECH AWARE NOT IV ACCESS SHE EXPLAINED TO DR FIELD CONDITIONS TO TAKE THEY CAN NOT DO THE TEST FOR PORT CATH ACCESS THE NUCLEAR MEDIC VQ PT NEEDS TO HAVE IV ACCESS
[2017-02-09] MEDS ORDERED: MAGNESIUM OXIDE 400 MG TAB PO SCH (21:30)
[2017-02-10] VITALS: BP 111/66
[2017-02-10] MEDS: oxyCODONE/APAP 5/325 MG 1 TAB TAB PO PRN ×3 (00:18→14:34)
[2017-02-10] MEDS: DIAZEPAM 5 MG TAB PO PRN ×3 (00:18→14:34)
--- NOTE | 2017-02-10 00:48 | NUR ---
PT SLEEPING WELL WELL AT THIS TIME AFTER PAIN MEDIC AND DIAZEPAM GIVEN
[2017-02-10 04:00] VITALS: BP 104/62
--- NOTE | 2017-02-10 04:00 | NUR ---
PT SLEEPING NOT DISTRESS NOTED
[2017-02-10] MEDS: CLINDAMYCIN 600 MG in DEXTROSE 5% 50 ML IV SCH ×2 (05:47→13:31)
--- NOTE | 2017-02-10 07:30 | NUR ---
RECEIVED REPORT FROM LEAK HUNTER NURSE, PT IS SLEEPING IN BED, EASILY AROUSED, PT IS A/OX4, AMBULATORY, PT HAS A LEFT SHOULDER ABSCESS COVERED WITH DRESSING. PT HAS RIGHT SUBCLAVIAN PORT CATH. NO S/S OF RESPIRATORY DISTRESS OR DISCOMFORT NOTED, FALL PRECAUTIONS ARE IN PLACE, BED IN LOWEST POSITION, CALL LIGHT WITHIN REACH, WILL CONTINUE TO MONITOR.
--- NOTE | 2017-02-10 07:53 | NUR ---
PT IS ENDORSED TO DAY SHIFT NURSE TO CONTINUITY OF CARE
[2017-02-10 08:00] VITALS: BP 114/77
[2017-02-10] MEDS: DOCUSATE SODIUM 100 MG GELCAP PO SCH (08:28)
[2017-02-10] MEDS: levETIRAcetam 500 MG TAB PO SCH ×2 (08:29→13:31)
[2017-02-10] MEDS: PREGABALIN 50 MG CAP PO SCH ×2 (08:29→13:31)
[2017-02-10] MEDS: LACTOBACILLUS RHAMNOSUS GG 1 EACH CAP PO SCH (08:29)
[2017-02-10] MEDS: QUEtiapine FUMARATE 100 MG TAB PO SCH (08:30)
[2017-02-10] MEDS: LORazepam 1 MG TAB PO SCH (08:31)
--- NOTE | 2017-02-10 08:57 | NUR ---
02/10/17 RD INITIAL ASSESSMENT COMPLETED PLEASE REFER TO NUTRITION ASSESSMENT UNDER CARE ACTIVITY FOR ESTIMATED NUTRITIONAL NEEDS. RD RECOMMENDATIONS: 1- RECOMMEND CONTINUE REGULAR DIET 2- F/U 3-5 DAYS; MODERATE RISK JESIKA RODRIGUEZ MBA, RD
[2017-02-10] MEDS ORDERED: MAG SULF 2000 MG/WATER PREMIX 50 ML IV SCH (09:30)
[2017-02-10] MEDS: LACTULOSE 20 GM/30 ML UDC PO SCH ×2 (09:34→13:32)
--- NOTE | 2017-02-10 10:00 | NUR ---
PT SLEEPING, NO S/S OF DISTRESS NOTED. WILL CONTINUE TO MONITOR.
[2017-02-10] MEDS ORDERED: diphenhydrAMINE 50 MG/ML VIAL IVP SCH ×2 (11:15→15:15)
--- NOTE | 2017-02-10 15:00 | NUR ---
NOTIFIED DR. CONTRERAS TO CHECK PT'S ABSCESS ON THE LEFT SHOULDER. DR. CONTRERAS CLEANED THE ABSCESS AND NEW DRESSING WAS APPLIED.
[2017-02-10] MEDS ORDERED: BEN50 PO (15:26)
[2017-02-10] MEDS ORDERED: LACT10SO1 PO (15:40)
[2017-02-10 16:34] VITALS: BP 118/65
--- NOTE | 2017-02-10 17:41 | NUR ---
PT DISCHARGED PER MD ORDER. DISCHARGE INSTRUCTION AND MED TEACHING GIVEN. PT VERBALIZED UNDERSTANDING. IV DISCONNECTED. PORT CATH CLAMPED AND CAPPED. PT IN STABLE CONDITION. NO S/S OF DISTRESS NOTED. PT DENIES DIZZINESS, NAUSEA, AND PAIN AT THIS TIME. PT LEFT WITH ALL HER BELONGINGS.
== END 2017-02-10 17:40 | disposition home or self-care (01) | DRG 896 ==
LOC: MED 12:02 → MTU 15:03
PROVIDERS: ADMIT Family Medicine; ATTEND Family Medicine
DX: F15.129 Other stimulant abuse with intoxication, unspecified (principal); E43 Unspecified severe protein-calorie malnutrition; F11.90 Opioid use, unspecified, uncomplicated; G93.41 Metabolic encephalopathy; R45.851 Suicidal ideations; L02.414 Cutaneous abscess of left upper limb; M62.50 Muscle wasting and atrophy, not elsewhere classified, unspecified site; F32.9 Major depressive disorder, single episode, unspecified; F60.3 Borderline personality disorder; R00.0 Tachycardia, unspecified; M79.7 Fibromyalgia; E83.42 Hypomagnesemia; G40.909 Epilepsy, unspecified, not intractable, without status epilepticus; D64.9 Anemia, unspecified; Z88.0 Allergy status to penicillin; Z91.041 Radiographic dye allergy status; Z85.038 Personal history of other malignant neoplasm of large intestine; Z85.830 Personal history of malignant neoplasm of bone; Z59.0 Homelessness; Z90.49 Acquired absence of other specified parts of digestive tract; Z90.722 Acquired absence of ovaries, bilateral; Z68.24 Body mass index [BMI] 24.0-24.9, adult; Z91.14 Patient's other noncompliance with medication regimen; Z28.21 Immunization not carried out because of patient refusal
CPT/HCPCS: 36415; 71010; 80053; 80173; 80305; 81001; 81025; 82140; 82150; 83036; 83605; 83690; 83735; 83880; 84100; 84439; 84443; 84484; 85025; 85379; 85610; 85730; 87040; 87186; 93005; 93308; 93925; 93970; 96374; 96375; 99285; G0480; G0482; J1200; J2270; J2405; J3370; J3475; J3490; J7030; J7060; Q0092

== ENCOUNTER 2017-02-15 17:45 | Inpatient (IN) | payer MEDICAID ==
[~2017-02-15] VITALS: Ht 165.1 cm; Wt 66.7 kg
[~2017-02-15 17:45] MED LIST changes: +BEN50 PO
--- NOTE | 2017-02-15 17:45 | NUR ---
Patient was BIBA and taken to bed 01 via gurney per EMS.
[2017-02-15 17:46] VITALS: BP 150/80
[2017-02-15] MEDS ORDERED: NACL 0.9% 1,000 ML IV SCH (18:01)
[2017-02-15] MEDS ORDERED: ONDANSETRON 4 MG/2 ML VIAL IM ONE (18:05)
[2017-02-15] MEDS ORDERED: PANTOPRAZOLE 40 MG INJ VIAL IVP ONE (18:05)
[2017-02-15] MEDS ORDERED: MORPHINE SULFATE 4 MG/ML SYR IVP ONE (18:05)
[2017-02-15] MEDS ORDERED: diphenhydrAMINE 50 MG/ML VIAL IVP ONE (18:10)
[2017-02-15] MEDS ORDERED: HYDROmorphone 1 MG/ML AMP IVP ONE (18:15)
[2017-02-15 18:23] LABS: BASOPHILS # (AUTO) 0.1 K/uL (0.00-0.22); BASOPHILS % (AUTO) 1.4 % (0.0-2.0); EOSINOPHILS # (AUTO) 0.1 K/uL (0-0.4); EOSINOPHILS % (AUTO) 2.5 % (0.0-4.0); HEMATOCRIT 27.9 % (36-48); LYMPHOCYTES # (AUTO) 1.4 K/uL (2.5-16.5); LYMPHOCYTES % (AUTO) 27.2 % (20.5-51.1); MEAN CORPUSCULAR HEMOGLOBIN 30 pg (27-31); MEAN CORPUSCULAR HGB CONC 32 g/dL (33-37); MEAN CORPUSCULAR VOLUME 92 fL (80-94); MONOCYTES # (AUTO) 0.6 K/uL (0.8-1.0); NEUTROPHILS # (AUTO) 3.1 K/uL (1.8-7.7); NEUTROPHILS % (AUTO) 57.9 % (42.2-75.2); PLATELET COUNT (AUTO) 332 K/uL (140-450); RED BLOOD CELL COUNT(AUTO) 3.03 MIL/uL (4.20-5.40); RED CELL DISTRIBUTION WIDTH 15.8 % (11.6-13.7); WHITE BLOOD COUNT (AUTO) 5.3 K/uL (4.8-10.8)
[2017-02-15] MEDS ORDERED: HYDROmorphone PFS 2 MG/ML SYR ONE (18:29)
--- NOTE | 2017-02-15 18:30 | NUR ---
37/F BIBA FOR EVALUATION OF VOMITING BLOOD X4 DAYS. PT STATES SHE WAS SEEN AT [facility] AND [facility] FOR SAME S/SX AND WAS DISCHARGED. PT ALSO STS RECEIVED BLOOD FROM LAST HOSP. HX OSTEOSARCOMA, LAST CHEMO LAST WEEK, EPILEPSY, PSYCH. PT APPEARS TO BE TRANSIENT. EMS BROUGHT 4 BAGS OF HER BELONGINGS. PT C/O SEVERE ABD PAIN. PORTOCATH ACCESSED TO R UPPER CHEST DATED 02/12/17. CAPS CHANGED BLOOD DRAWN. IVF AND MEDS GIVEN PER MAY. PT PLACED ON MONITOR.
[2017-02-15 18:40] LABS: ANION GAP 6.4 (8-16); CARBON DIOXIDE 32.7 mmol/L (21-32); CREATININE 0.7 mg/dL (0.6-1.3); POTASSIUM 4.1 mmol/L (3.5-5.1); PROTHROMBIN TIME 9.5 secs (10.8-13.4)
[2017-02-15 18:46] LABS: TOTAL BILIRUBIN 0.1 mg/dL (0.0-1.0)
--- NOTE | 2017-02-15 19:15 | NUR ---
REPORT RECEIVED FROM SUMA MARTINEZ
[2017-02-15] MEDS: NACL 0.9% 1,000 ML IV SCH (20:05)
[2017-02-15] MEDS ORDERED: ONDANSETRON 4 MG/2 ML VIAL IVP PRN (20:05)
[2017-02-15] MEDS ORDERED: ACETAMINOPHEN 325 MG TAB PO PRN (20:05)
[2017-02-15 20:44] LABS: CHOL/HDL RATIO 2.5 (1-4.5); MAGNESIUM 1.5 mg/dL (1.8-2.4); PHOSPHORUS 4.4 mg/dL (2.5-4.9)
--- NOTE | 2017-02-15 20:53 | NUR ---
Patient will be admitted to care of DR TERESA. Admited to OBS/TELE. Will go to room 104B. Belongings list completed. Report to MEHREEN, RN
[2017-02-15] MEDS ORDERED: MAG SULF 2000 MG/WATER PREMIX 50 ML IV SCH (20:55)
[2017-02-15 21:10] VITALS: BP 145/70
--- NOTE | 2017-02-15 21:10 | NUR ---
RECEIVED PATIENT FROM ER. PATIENT A&OX4. PATIENT IS GUARDED BUT WILLING TO COOPERATE. IV SITE PATENT AND INTACT. PATIENT AMBULATORY, SKIN INTACT. PATIENT DENIES PAIN. NO SIGNS OR SYMPTOMS OF ACUTE DISTRESS NOTED. SAFETY MEASURES ENSURED. TELE BOX IN PLACE. SEIZURE PADS IN PLACE. CALL LIGHT WITHIN REACH. WILL CONTINUE TO MONITOR.
[2017-02-15] MEDS ORDERED: ZOLPIDEM 10 MG TAB PO PRN (21:30)
[2017-02-15] MEDS ORDERED: FUROSEMIDE 20 MG/2 ML VIAL IVP SCH (21:30)
[2017-02-15] MEDS: DOCUSATE SODIUM 100 MG GELCAP PO SCH (22:32)
[2017-02-15] MEDS ORDERED: LACTULOSE 20 GM/30 ML UDC PO SCH (22:50)
[2017-02-15] MEDS ORDERED: AMITRIPTYLINE 25 MG TAB PO SCH (22:50)
[2017-02-15] MEDS ORDERED: LACTULOSE BULK 2400 GM/240 ML BTL PO PRN (23:30)
[2017-02-15] MEDS ORDERED: levETIRAcetam 500 MG TAB PO SCH (23:50)
[2017-02-16] VITALS: BP 144/67
--- NOTE | 2017-02-16 02:10 | NUR ---
PATIENT REQUESTED ATIVAN. NO ORDER AVAILABLE. MD AWARE. PATIENT IS IRRITABLE AND STATES " THIS HOSPITAL FUCKING SUCKS, WHY AM I HERE YOU GUYS AREN'T DOING ANYTHING FOR ME". PATIENT STATES SHE IS HAVING METHADONE WITHDRAWALS. NO SIGNS OR SYMPTOMS OF ACUTE DISTRESS NOTED. RR 18 EVEN AND NON LABORED. SAFETY MEASURES ENSURED. WILL CONTINUE TO MONITOR.
--- NOTE | 2017-02-16 05:00 | NUR ---
PATIENT REFUSED BLOOD DRAW. NO SIGNS OR SYMPTOMS OF ACUTE DISTRESS. CALL LIGHT WITHIN REACH. WILL CONTINUE TO MONITOR.
[2017-02-16] MEDS: NACL 0.9% 1,000 ML IV SCH (05:11)
--- NOTE | 2017-02-16 07:40 | NUR ---
ENDORSED PLAN OF CARE TO AM RN. PATIENT IN STABLE CONDITION. NO SIGNS OR SYMPTOMS OF ACUTE DISTRESS NOTED. SAFETY MEASURES ENSURED.
--- NOTE | 2017-02-16 07:40 | NUR ---
ENDORSEMENT RECEIVED FROM GREEN HIDE INSPECTOR NURSE. RESPIRATION EVEN, UNLABOR, SKIN DRY AND WARM. CALL LIGHT WITHIN REACH. WILL CONTINUE TO MONITOR.
--- NOTE | 2017-02-16 07:59 | NUR ---
PATIENT REFUSED VITAL SIGN AND ASSESSMENT
[2017-02-16 08:00] VITALS: BP 116/68
[2017-02-16] MEDS ORDERED: FUROSEMIDE 20 MG/2 ML VIAL IVP SCH (09:00)
[2017-02-16] MEDS: QUEtiapine FUMARATE 100 MG TAB PO SCH ×2 (09:00→09:24)
[2017-02-16] MEDS ORDERED: PREGABALIN 50 MG CAP PO SCH (09:00)
[2017-02-16] MEDS ORDERED: PANTOPRAZOLE 40 MG INJ VIAL IVP SCH (09:00)
[2017-02-16] MEDS ORDERED: LACTULOSE 20 GM/30 ML UDC PO SCH (09:00)
[2017-02-16] MEDS ORDERED: levETIRAcetam 500 MG TAB PO SCH (09:00)
[2017-02-16] MEDS ORDERED: LORazepam 1 MG TAB PO SCH (09:00)
[2017-02-16] MEDS ORDERED: LACTULOSE 20 GM/30 ML UDC PO PRN (09:22)
[2017-02-16] MEDS: DOCUSATE SODIUM 100 MG GELCAP PO SCH (09:24)
--- NOTE | 2017-02-16 09:30 | NUR ---
PATIENT REFUSED A COMPLETE ASSESSMENT. PATIENT AWAKE, ALERT. RESPIRATION EVEN, UNLABOR. SKIN DRY AND WARM. LJ CATH ON RIGHT UPPER CHEST CLEAR AND INTACT. NO DISTRESS NOTED AT THIS TIME. CALL LIGHT WITHIN REACH. WILL CONTINUE TO MONITOR
--- NOTE | 2017-02-16 09:47 | NUR ---
PATIENT HAS BEEN SCREENED AND CATEGORIZED MODERATE NUTRITION RISK. PATIENT WILL BE SEEN WITHIN 3-5 DAYS OF ADMISSION. 02/18/17-02/20/[address]
--- NOTE | 2017-02-16 12:02 | NUR ---
DISCHARGE ORDER RECEIVED, PT REQUESTING ATIVAN, ATIVAN DC'D, PER DR BANGURA NO MORE ATIVAN WILL BE GIVEN BEFORE DISCHARGE, ACUTE CARE PHYSICIAN FARHEEN AND SECURITY AT BEDSIDE, PT AGGITATED, CURSING, REFUSES CARE, PT INSTRUCTED TO GET READY FOR DISCHARGE.
--- NOTE | 2017-02-16 12:25 | NUR ---
DISCHARGE INTRUCTION WAS VERBALLY GIVEN TO PATIENT. PATIENT REFUSED TO SIGN OR TAKE HOME THE PACKAGE. HOME LIST RESOURCE PROVIDED. PATIENT ALSO REFUSED TO SIGN WAIVER FORM. PATIENT REFUSED [facility] CATH NEEDLE REMOVAL. SUPERVISOR HAND SILVERING AND SECURITY WAS AT BEDSIDE. ALL BELONGINGS WERE TAKEN BY THE PATIENT. ESCORTED OUT BY SECURITY. Addendum: 02/16/17 at 1250 by Nereyda Fortune RN PATIENT VERBALIZED THAT SHE HAD THE [facility] CATH NEEDLE ACCESS AT [facility] PRIOR TO ARRIVAL TO [facility]. PATIENT REFUSED REMOVAL, STATED SHE IS GOING BACK TO [facility] FOR THE FURTHER CARE OF THE [facility] CATH. PATIENT WAS ESCORTED OUT BY SECURITY AND CAN AMBULATE HERSELF. PATIENT HAD LUNCH PRIOR. DENIED N/V, OR PAIN. PATIENT IS STABLE AT THIS TIME Addendum: 02/16/17 at 1254 by Shakira Tapia RN PT NANCY LUNCH WITHOUT VOMITING OR NAUSEA, NO C/O ABD PAIN OR DISCOMFORT, AMBULATED WITH STEADY GAIT.
--- NOTE | 2017-02-16 13:36 | NUR ---
1155 MET WITH PT REGARDING DISCHARGE PLAN. PT STATED THAT SHE HAD MOVED FROM [place] [facility] 3 WEEKS AGO AND HAS HAD SOME CHEMOTHERAPY IN [place]. PT REFUSED TO HAVE SAVAGE NEEDLE REMOVED FROM [facility] CATH. ASKED PT IF SHE WANTED A BUS PASS TO GO TO A [facility] AND SAID SHE WANTED A BUS PASS BUT WOULD NOT GO TO A [facility]. ASKED PT WHERE SHE HAD BEEN STAYING ON THE STREET AND PT BECAME AGITATED AND REFUSED TO ANSWER ANY FURTHER QUESTIONS. WOULD NOT PROVIDE ANY INFORMATION REGARDING IF SHE HAS FAMILY OR FRIENDS. PT CURSING AT THE STAFF. INSTRUCTED PT SHE WAS DISCHARGED AND PROVIDED HER WITH A BUS PASS. SECURITY AND NURSING ASSISTING PT WITH COLLECTING HER BELONGINGS.
[2017-02-16] MEDS ORDERED: AMITRIPTYLINE 25 MG TAB PO SCH (21:00)
== END 2017-02-16 12:25 | disposition home or self-care (01) | DRG 812 ==
LOC: MED 17:45 → MTU 20:11
PROVIDERS: ADMIT Family Medicine; ATTEND Family Medicine
DX: T50.901A Poisoning by unspecified drugs, medicaments and biological substances, accidental (unintentional), initial encounter (principal); G92 Toxic encephalopathy; E44.0 Moderate protein-calorie malnutrition; E86.0 Dehydration; F19.10 Other psychoactive substance abuse, uncomplicated; D64.9 Anemia, unspecified; E87.1 Hypo-osmolality and hyponatremia; E83.42 Hypomagnesemia; Z88.0 Allergy status to penicillin; Z88.8 Allergy status to other drugs, medicaments and biological substances; Z68.24 Body mass index [BMI] 24.0-24.9, adult; L02.414 Cutaneous abscess of left upper limb; G40.909 Epilepsy, unspecified, not intractable, without status epilepticus; Z85.038 Personal history of other malignant neoplasm of large intestine; F31.5 Bipolar disorder, current episode depressed, severe, with psychotic features; Z91.19 Patient's noncompliance with other medical treatment and regimen; M79.7 Fibromyalgia; I34.0 Nonrheumatic mitral (valve) insufficiency; Y92.89 Other specified places as the place of occurrence of the external cause; F14.10 Cocaine abuse, uncomplicated; Z92.21 Personal history of antineoplastic chemotherapy; Z90.722 Acquired absence of ovaries, bilateral; Z90.49 Acquired absence of other specified parts of digestive tract; Z91.041 Radiographic dye allergy status; N18.6 End stage renal disease
CPT/HCPCS: 36415; 71010; 80053; 80173; 82150; 83690; 83735; 83880; 84100; 85025; 85610; 85730; 86886; 86900; 86901; 87081; 93005; 96374; 96375; 99285; C9113; J1170; J1200; J1940; J2270; J2405; J3475

== ENCOUNTER 2017-02-17 09:17 | Emergency (ER) | payer MEDICAID ==
[~2017-02-17] VITALS: Ht 165.1 cm; Wt 64.0 kg
[~2017-02-17 09:17] MED LIST changes: -ACET-9494 PO; -CLIN300C2 PO; -LACT10CA PO
[2017-02-17 09:21] VITALS: BP 151/93
--- NOTE | 2017-02-17 09:28 | NUR ---
Patient ambulated to bed 07.
[2017-02-17] MEDS ORDERED: NACL 0.9% 1,000 ML IV ONE ×2 (09:32→12:15)
[2017-02-17] MEDS ORDERED: HYDROmorphone 1 MG/ML AMP IVP ONE ×2 (09:35→12:10)
[2017-02-17] MEDS ORDERED: ONDANSETRON 4 MG/2 ML VIAL IVP ONE (09:35)
[2017-02-17] MEDS ORDERED: HYDROmorphone PFS 2 MG/ML SYR ONE ×2 (09:58→12:26)
--- NOTE | 2017-02-17 10:00 | NUR ---
37/F BIB SELF C/O VOMITING BLOOD, BLOODY STOOL & MID ABD x 3 DAYS.HX: LUPUS, COLON CA 3 YRS AGO, EPILEPSY. PT HAS PORTACATH R UPPER CHEST; PATENT/INTACT. AAOX4 WITH EVEN AND STEADY GAIT; LUNGS CLEAR BL; PT DENIES ANY FEVER, CP, SOB, OR COUGH AT THIS TIME; PATIENT STATES PAIN OF 10/10 AT THIS TIME; PATIENT POSITIONED FOR COMFORT; HOB ELEVATED; BEDRAILS UP X2; BED DOWN. ER MD MADE AWARE OF PT STATUS.
--- NOTE | 2017-02-17 10:00 | NUR ---
LAB at bedside.
[2017-02-17 10:19] LABS: BASOPHILS # (AUTO) 0.1 K/uL (0.00-0.22); BASOPHILS % (AUTO) 2.2 % (0.0-2.0); EOSINOPHILS # (AUTO) 0.1 K/uL (0-0.4); EOSINOPHILS % (AUTO) 1.5 % (0.0-4.0); HEMATOCRIT 30.2 % (36-48); HEMOGLOBIN 9.9 g/dL (12.0-16.0); LYMPHOCYTES # (AUTO) 1.3 K/uL (2.5-16.5); LYMPHOCYTES % (AUTO) 26.7 % (20.5-51.1); MEAN CORPUSCULAR HEMOGLOBIN 30 pg (27-31); MEAN CORPUSCULAR HGB CONC 33 g/dL (33-37); MEAN CORPUSCULAR VOLUME 92 fL (80-94); MONOCYTES # (AUTO) 0.3 K/uL (0.8-1.0); MONOCYTES % (AUTO) 5.6 % (1.7-9.3); NEUTROPHILS # (AUTO) 2.9 K/uL (1.8-7.7); PLATELET COUNT (AUTO) 389 K/uL (140-450); RED BLOOD CELL COUNT(AUTO) 3.27 MIL/uL (4.20-5.40); RED CELL DISTRIBUTION WIDTH 15.9 % (11.6-13.7); WHITE BLOOD COUNT (AUTO) 4.7 K/uL (4.8-10.8)
--- NOTE | 2017-02-17 10:25 | NUR ---
Patient taken to CT via gurney.
[2017-02-17 10:35] LABS: CARBON DIOXIDE 27.9 mmol/L (21-32); CREATININE 0.7 mg/dL (0.6-1.3); POTASSIUM 3.9 mmol/L (3.5-5.1); PROTHROMBIN TIME 9.9 secs (10.8-13.4)
--- NOTE | 2017-02-17 10:35 | NUR ---
Patient back from CT via [facility].
[2017-02-17 10:41] LABS: TOTAL BILIRUBIN 0.2 mg/dL (0.0-1.0)
--- NOTE | 2017-02-17 11:09 | NUR ---
R UPPER CHEST PORTACATH DRESSING DONE .PT TOLERATED PROCEDURE WELL.
[2017-02-17] MEDS ORDERED: PROMETHAZINE 25 MG/ML VIAL IVP ONE (11:50)
--- NOTE | 2017-02-17 11:51 | NUR ---
PT C/O VOMITED: WHITE SECRETION & ABD PAIN 09/25. NOTIFIED DR CORTEZ.
[2017-02-17 12:17] LABS: APPEARANCE,URINE CLEAR (CLEAR); BILIRUBIN,URINE NEGATIVE (NEGATIVE); BLOOD, URINE NEGATIVE (NEGATIVE); COLOR,URINE YELLOW (YELLOW); LEUKOCYTE ESTERASE ,URINE NEGATIVE (NEGATIVE); NITRITE, URINE NEGATIVE (NEGATIVE); UGLUCOSE NEGATIVE (NEGATIVE)
[2017-02-17 12:19] LABS: BARBITURATE, URINE NEG. ng/ml (NEG <=200); BENZODIAZEPINE, URINE POS. ng/mL (NEG <=200); CANNABINOID, URINE NEG. ng/mL (NEG <=50); COCAINE, URINE NEG. ng/mL (NEG <=300); OPIATE, URINE NEG. ng/mL (NEG <=2000); PHENCYCLIDINE SCREEN,URINE NEG. ng/mL (NEG <=25)
[2017-02-17 14:32] VITALS: BP 129/71
--- NOTE | 2017-02-17 14:32 | NUR ---
Patient discharged with v/s stable. Written and verbal after care instructions given and explained. Patient alert, oriented and verbalized understanding of instructions. Ambulatory with steady gait. All questions addressed prior to discharge. ID band removed. Patient advised to follow up with PMD. Rx of NORCO & ZOFRAN given. Patient educated on indication of medication including possible reaction and side effects. Opportunity to ask questions provided and answered.
== END 2017-02-17 14:32 | disposition home or self-care (01) ==
LOC: MED 09:17
DX: R10.84 Generalized abdominal pain (principal); R11.2 Nausea with vomiting, unspecified; Z79.899 Other long term (current) drug therapy; Z88.0 Allergy status to penicillin; Z88.8 Allergy status to other drugs, medicaments and biological substances
CPT/HCPCS: 36415; 71010; 74176; 80053; 80305; 81003; 83605; 83690; 85025; 85610; 87040; 87086; 96361; 96374; 96375; 96376; 99285; J1170; J2405; J2550; J7030; Q0092; 87186

== ENCOUNTER 2017-02-17 17:43 | Emergency (ER) | payer MEDICAID ==
[~2017-02-17] VITALS: Ht 165.1 cm; Wt 64.0 kg
[2017-02-17 17:51] VITALS: BP 123/98
--- NOTE | 2017-02-17 18:36 | NUR ---
Pt to bed 06.
--- NOTE | 2017-02-17 18:40 | NUR ---
37/F was seen here earlier today and was discharged. Pt returned stating she couldn't fill her medications. Pt states "I couldn't get to the pharmacy." Dr. Thorne explained to patient she was not going to be admitted and need to get her prescriptions filled. Pt states she was with a friend but still could not get to the pharmacy. No vomiting noted while pt in ED. VSS. No distress noted.
--- NOTE | 2017-02-17 18:55 | NUR ---
[facility] called for patient. Pt waiting in ER lobby. ETA is 30-45 mins. Voucher provided.
[2017-02-17 18:57] VITALS: BP 123/98
--- NOTE | 2017-02-17 18:57 | NUR ---
Patient discharged with v/s stable. Written and verbal after care instructions given and explained. Patient verbalized understanding. Ambulatory with steady gait. Pt to wait in ER lobby for taxi. Taxi transportation arranged. All questions addressed prior to discharge. Advised to follow up with PMD.
== END 2017-02-17 18:57 | disposition home or self-care (01) ==
LOC: MED 17:43
DX: R11.2 Nausea with vomiting, unspecified (principal); F17.210 Nicotine dependence, cigarettes, uncomplicated; Z85.038 Personal history of other malignant neoplasm of large intestine; Z88.0 Allergy status to penicillin; Z91.041 Radiographic dye allergy status; Z88.8 Allergy status to other drugs, medicaments and biological substances
CPT/HCPCS: 99283

== ENCOUNTER 2017-02-18 17:53 | Inpatient (IN) | payer MEDICAID ==
[~2017-02-18] VITALS: Ht 165.1 cm; Wt 68.0 kg
[2017-02-18 18:41] VITALS: BP 144/94
--- NOTE | 2017-02-18 18:45 | NUR ---
PT AMBULATED TO ER BED 4.
--- NOTE | 2017-02-18 18:51 | NUR ---
37/F PRESENTS TO ER C/O VOMITNG x 2 DAYS. PT WAS SEEN IN [facility] ER x 2 YESTERDAY FOR SAME S/SX. PAIN 6/10 ACHING NON-RADIATING. AAOx4, PERRLA, BREATHING EVEN AND UNLABORED. ERMD NOTIFIED OFPATIENT STATUS.
--- NOTE | 2017-02-18 19:09 | NUR ---
GOT REPORT FROM SUMA GREGORY. PT. RESTING IN BED, NO S/SX OF DISTRESS.
--- NOTE | 2017-02-18 19:09 | NUR ---
Pt report given to SUMA DODSON. Transfer of care at this time.
--- NOTE | 2017-02-18 19:14 | NUR ---
Dr. Mckeon evaluating patient at bedside.
[2017-02-18] MEDS ORDERED: NACL 0.9% 1,000 ML IV SCH (19:28)
[2017-02-18] MEDS ORDERED: ONDANSETRON 4 MG/2 ML VIAL IVP ONE (19:30)
--- NOTE | 2017-02-18 19:30 | NUR ---
LAB DRAWN FROM RT. UPPER CHEST PORT A CATH, PATENT AND INTACT.
[2017-02-18] MEDS ORDERED: MORPHINE SULFATE 4 MG/ML SYR IVP ONE (19:40)
[2017-02-18 20:02] LABS: BASOPHILS # (AUTO) 0.1 K/uL (0.00-0.22); BASOPHILS % (AUTO) 1.8 % (0.0-2.0); EOSINOPHILS % (AUTO) 0.5 % (0.0-4.0); HEMATOCRIT 29.4 % (36-48); HEMOGLOBIN 9.8 g/dL (12.0-16.0); LYMPHOCYTES # (AUTO) 1.3 K/uL (2.5-16.5); LYMPHOCYTES % (AUTO) 16.3 % (20.5-51.1); MEAN CORPUSCULAR HEMOGLOBIN 30 pg (27-31); MEAN CORPUSCULAR HGB CONC 33 g/dL (33-37); MEAN CORPUSCULAR VOLUME 91 fL (80-94); MONOCYTES # (AUTO) 0.7 K/uL (0.8-1.0); MONOCYTES % (AUTO) 8.2 % (1.7-9.3); NEUTROPHILS % (AUTO) 73.2 % (42.2-75.2); PLATELET COUNT (AUTO) 407 K/uL (140-450); RED BLOOD CELL COUNT(AUTO) 3.21 MIL/uL (4.20-5.40); RED CELL DISTRIBUTION WIDTH 16.3 % (11.6-13.7); WHITE BLOOD COUNT (AUTO) 8.1 K/uL (4.8-10.8)
[2017-02-18 20:15] LABS: CARBON DIOXIDE 24.8 mmol/L (21-32); CREATININE 0.7 mg/dL (0.6-1.3); POTASSIUM 3.8 mmol/L (3.5-5.1)
[2017-02-18 20:19] LABS: PROTHROMBIN TIME 9.7 secs (10.8-13.4)
[2017-02-18 20:20] LABS: TOTAL BILIRUBIN 0.1 mg/dL (0.0-1.0)
--- NOTE | 2017-02-18 21:04 | NUR ---
Female Information Consultant accompanied female patient for Rectal Exam.
[2017-02-18] MEDS ORDERED: DOCUSATE SODIUM 100 MG GELCAP PO PRN (21:20)
[2017-02-18] MEDS ORDERED: MORPHINE SULFATE 2 MG/ML SYR IVP PRN (21:20)
[2017-02-18] MEDS ORDERED: ONDANSETRON 4 MG/2 ML VIAL IM/IVP PRN (21:20)
[2017-02-18] MEDS ORDERED: ACETAMINOPHEN 325 MG TAB PO PRN (21:20)
--- NOTE | 2017-02-18 21:40 | NUR ---
Patient will be admitted to care of . Admited to TELEMETRY. Will go to [id number]. Belongings list completed. Report to SUMA NIEVES.
[2017-02-18] MEDS ORDERED: LACTULOSE BULK 2400 GM/240 ML BTL PO PRN (21:45)
[2017-02-18] MEDS ORDERED: LORazepam 1 MG TAB PO SCH (21:45)
[2017-02-18] MEDS ORDERED: levETIRAcetam 500 MG TAB PO SCH (21:45)
[2017-02-18 21:50] VITALS: BP 140/83
--- NOTE | 2017-02-18 21:50 | NUR ---
RECEIVED PT FROM ER VIA ANDREA PT IS AAOX4 AMBULATORY ADMITTING FOR GI BLEED NOT ACTIVE BLEEDING AT THIS TIME , PT HAS A PORT CAHT ON RT UPPER CHEST FRO CHEMIIOTHERAPY HX COLON CA, AND SCAB ON LEFT UPPER ARM PT IS ORIENTED TOTHE FLOOR CALL LIGHT WITHIN REACH
[2017-02-18] MEDS: NACL 0.9% 1,000 ML IV SCH (22:20)
[2017-02-18 22:40] LABS: CHOL/HDL RATIO 3.4 (1-4.5); FREE T4 (FREE THYROXINE) 0.79 ng/dL (0.76-1.46); MAGNESIUM 1.8 mg/dL (1.8-2.4); PHOSPHORUS 3.8 mg/dL (2.5-4.9); THYROID STIMULATING HORMONE 0.21 uIU/mL (0.34-3.74)
--- NOTE | 2017-02-18 23:20 | NUR ---
DR DOWNEY, RESIDENT IS HERE AND SEE THE PT
[2017-02-18] MEDS: HYDROcodone/APAP 7.5/325 MG 1 TAB PO PRN (23:40)
[2017-02-19] VITALS: BP 126/92
[2017-02-19] MEDS ORDERED: DIAZEPAM 2 MG TAB PO SCH ×2 (00:10→09:00)
[2017-02-19] MEDS: diphenhydrAMINE 50 MG CAP PO PRN ×2 (00:21→10:49)
[2017-02-19] MEDS: levETIRAcetam 500 MG TAB PO SCH ×2 (00:23→09:22)
[2017-02-19] MEDS: LORazepam 1 MG TAB PO SCH ×2 (00:24→09:23)
[2017-02-19] MEDS: PREGABALIN 50 MG CAP PO SCH ×2 (00:24→09:22)
--- NOTE | 2017-02-19 00:30 | NUR ---
ONCE DOSE MEDIC GIVEN ORDER AND PT STILL ASKING FOR MORE MEDICATION TO TAKE
[2017-02-19] MEDS ORDERED: SODIUM PHOSPHATE 118 ML ENEM RC SCH (03:15)
--- NOTE | 2017-02-19 03:15 | NUR ---
PT ON DEEP SLEEP NOT DISTRESS NOTED ON TELEMETRY SR
[2017-02-19 04:00] VITALS: BP 106/71
--- NOTE | 2017-02-19 04:00 | NUR ---
PT VERBALIZED TO HAVE HAD BOWEL MOVEMENT YESTERDAY AND REFUSE THE FLEET ENEMA AND DR DOWNEY AWARE
--- NOTE | 2017-02-19 06:00 | NUR ---
PT SLEEPING NOT VOMITING SINCE ADMISSION ON TELE SR , IV FLUIDS INFUSING WELL ON PORT CATH ON RT UPPER CHEST
[2017-02-19] MEDS: NACL 0.9% 1,000 ML IV SCH (06:45)
--- NOTE | 2017-02-19 07:05 | NUR ---
RECEIVED REPORT FROM NIGHT RN, PT A/OX4, PLAN OF CARE DISCUSSED WITH PATIENT, PT VERBALIZED UNDERSTANDING, NO S/S OF ACUTE DISTRESS, PT DENIES PAIN AT THE TIME, SAFETY PRECAUTIONS TAKEN, CALL LIGHT WITHIN REACH, WILL CONT TO MONITOR.
[2017-02-19 08:00] VITALS: BP 110/88
[2017-02-19] MEDS ORDERED: BISACODYL 10 MG SUPP RC SCH (08:45)
[2017-02-19] MEDS ORDERED: QUEtiapine FUMARATE 100 MG TAB PO SCH (09:00)
[2017-02-19] MEDS ORDERED: PANTOPRAZOLE 40 MG INJ VIAL IVP SCH (09:00)
[2017-02-19] MEDS: HYDROcodone/APAP 7.5/325 MG 1 TAB PO PRN (09:23)
--- NOTE | 2017-02-19 09:30 | NUR ---
DUE MEDICATIONS GIVEN WITH EDUCATION, PT VERBALIZED UNDERSTANDING, PT TOLERATED WELL, PT STATED THAT SHE WOULD LIKE TO DO THE SUPPOSITORY HERSELF, WITNESSED SUPPOSITORY DONE, CALL LIGHT WITHIN REACH, WILL CONT TO MONITOR.
[2017-02-19] MEDS ORDERED: LACTULOSE 20 GM/30 ML UDC PO PRN (10:10)
--- NOTE | 2017-02-19 11:00 | NUR ---
PT REFUSED TELEBOX
[2017-02-19 12:47] VITALS: BP 130/88
--- NOTE | 2017-02-19 14:00 | NUR ---
PT DISCHARGED FROM UNIT, PT ARM BANDS CUT OFF, PT ESCORTED OUT BY SECURITY, PT IN STABLE CONDITION.
[2017-02-19] MEDS ORDERED: AMITRIPTYLINE 25 MG TAB PO SCH (21:00)
[2017-02-20 12:19] LABS: T4 (THYROXINE) 5.6 ug/dL (4.5-12.0)
== END 2017-02-19 14:01 | disposition home or self-care (01) | DRG 240 ==
LOC: MED 17:53 → MTU 21:25
PROVIDERS: ADMIT Family Medicine; ATTEND Family Medicine
DX: C18.9 Malignant neoplasm of colon, unspecified (principal); R45.851 Suicidal ideations; E44.0 Moderate protein-calorie malnutrition; I07.1 Rheumatic tricuspid insufficiency; K92.2 Gastrointestinal hemorrhage, unspecified; D63.8 Anemia in other chronic diseases classified elsewhere; F14.10 Cocaine abuse, uncomplicated; F15.10 Other stimulant abuse, uncomplicated; F31.9 Bipolar disorder, unspecified; F17.200 Nicotine dependence, unspecified, uncomplicated; M79.7 Fibromyalgia; F60.3 Borderline personality disorder; G40.909 Epilepsy, unspecified, not intractable, without status epilepticus; F41.9 Anxiety disorder, unspecified; Z88.0 Allergy status to penicillin; Z88.8 Allergy status to other drugs, medicaments and biological substances; Z90.49 Acquired absence of other specified parts of digestive tract; Z91.041 Radiographic dye allergy status; Z79.899 Other long term (current) drug therapy; Z85.830 Personal history of malignant neoplasm of bone; Z90.710 Acquired absence of both cervix and uterus; Z90.722 Acquired absence of ovaries, bilateral; Z91.14 Patient's other noncompliance with medication regimen; Z68.25 Body mass index [BMI] 25.0-25.9, adult; Z28.82 Immunization not carried out because of caregiver refusal
CPT/HCPCS: 36415; 80053; 80173; 82150; 83036; 83690; 83735; 83880; 84100; 84436; 84439; 84443; 84479; 85025; 85610; 85730; 86886; 86900; 86901; 87081; 93005; 96361; 96374; 96375; 99285; C9113; J2270; J2405; J7030; Q0163

== ENCOUNTER 2017-02-20 11:24 | Inpatient (IN) | payer MEDICAID ==
[~2017-02-20] VITALS: Ht 165.1 cm; Wt 64.9 kg
--- NOTE | 2017-02-20 11:24 | NUR ---
Patient was BIBA BLS at this time.
--- NOTE | 2017-02-20 11:25 | NUR ---
Patient ambulated to OF waiting to be evaluated by ER MD.
[2017-02-20 11:29] VITALS: BP 132/68
--- NOTE | 2017-02-20 12:02 | NUR ---
Patient to bed 06.
--- NOTE | 2017-02-20 12:37 | NUR ---
DR KATE AT BEDSIDE.
--- NOTE | 2017-02-20 12:37 | NUR ---
PT WAS PUT ON HOLD DUE TO SUICIDAL IDEATION;ASKED PT IF SHE STILL HAVE THE INTENTION TO HURT HERSELF PT STATES "YES";HER PLAN IS TO TAKE ANY BOTTLE OF PILLS;WILL DO CLOSE MONITORING;SAFTEY MEASURES INSTITUTED;
--- NOTE | 2017-02-20 12:41 | NUR ---
PATIENT BIBA DUE TO SUICIDAL IDEATION . PT STATES SHE WILL TAKE A BOTTLE OF PILLS FROM HER FRIENDS.PLANS TO KILL HERSELF BECAUSE SHE'S FEELING DOWN; DENIES N/V/D; SKIN IS PINK/WARM/DRY; AAOX4 WITH EVEN AND STEADY GAIT; LUNGS CLEAR BL; HR EVEN AND REGULAR; PT DENIES ANY FEVER, CP, SOB, OR COUGH AT THIS TIME; PATIENT STATES PAIN OF 0/10 AT THIS TIME;PATIENT POSITIONED FOR COMFORT; HOB ELEVATED; BEDRAILS UP X2; BED DOWN. ER MD MADE AWARE OF PT STATUS.
[2017-02-20] MEDS ORDERED: levETIRAcetam 500 MG TAB PO ONE (12:45)
[2017-02-20] MEDS ORDERED: ACETAMINOPHEN 325 MG TAB PO ONE (12:45)
--- NOTE | 2017-02-20 13:32 | NUR ---
PT ASKED FOR A CUP OF WATER;OFFERED WATER;NO ACUTE DISTRESS NOTED;CLARITA CONTINUE TO MONITOR PT.
[2017-02-20 13:34] LABS: BASOPHILS # (AUTO) 0.1 K/uL (0.00-0.22); EOSINOPHILS % (AUTO) 0.7 % (0.0-4.0); HEMATOCRIT 32.3 % (36-48); HEMOGLOBIN 10.4 g/dL (12.0-16.0); LYMPHOCYTES # (AUTO) 1.2 K/uL (2.5-16.5); LYMPHOCYTES % (AUTO) 22.4 % (20.5-51.1); MEAN CORPUSCULAR HEMOGLOBIN 30 pg (27-31); MEAN CORPUSCULAR HGB CONC 32 g/dL (33-37); MEAN CORPUSCULAR VOLUME 93 fL (80-94); MONOCYTES # (AUTO) 0.4 K/uL (0.8-1.0); MONOCYTES % (AUTO) 6.8 % (1.7-9.3); NEUTROPHILS # (AUTO) 3.7 K/uL (1.8-7.7); NEUTROPHILS % (AUTO) 69.1 % (42.2-75.2); PLATELET COUNT (AUTO) 452 K/uL (140-450); RED BLOOD CELL COUNT(AUTO) 3.48 MIL/uL (4.20-5.40); RED CELL DISTRIBUTION WIDTH 15.9 % (11.6-13.7); WHITE BLOOD COUNT (AUTO) 5.4 K/uL (4.8-10.8)
[2017-02-20 13:50] LABS: ANION GAP 13.2 (8-16); CARBON DIOXIDE 23.8 mmol/L (21-32); CHLORIDE 106 mmol/L (98-107); CREATININE 0.8 mg/dL (0.6-1.3); GFR ARICAN-AMERICAN 103 mL/min (>90); GLUCOSE 112 mg/dL (74-106); SODIUM SERUM 139 mmol/L (136-145); UREA NITROGEN, BLOOD 15 mg/dL (7-18)
[2017-02-20 13:55] LABS: ACETAMINOPHEN 11.2 ug/ml (10-30); ALBUMIN 3.2 g/dL (3.4-5.0); ASPARTATE AMINOTRANSFERASE 15 U/L (15-37); TOTAL BILIRUBIN 0.2 mg/dL (0.0-1.0)
[2017-02-20 13:56] LABS: SALICYLATE < 2.8 mg/dL (2.8-20.0)
[2017-02-20 14:14] LABS: BARBITURATE, URINE NEG. ng/ml (NEG <=200); BENZODIAZEPINE, URINE POS. ng/mL (NEG <=200); CANNABINOID, URINE NEG. ng/mL (NEG <=50); COCAINE, URINE NEG. ng/mL (NEG <=300); OPIATE, URINE NEG. ng/mL (NEG <=2000); PHENCYCLIDINE SCREEN,URINE NEG. ng/mL (NEG <=25)
--- NOTE | 2017-02-20 14:33 | NUR ---
PT RESTING ON BED;NO ACUTE DISTRESS NOTED;WILL CONTINUE TO MONITOR PT.
--- NOTE | 2017-02-20 16:03 | NUR ---
DR. TO AT BEDSIDE TO EVALUATE PATIENT.
--- NOTE | 2017-02-20 17:45 | NUR ---
PT RESTING ON BED;NO ACUTE DISTRESS NOTED;WILL CONTINUE TO MONITOR PT.
[2017-02-20 17:49] LABS: APPEARANCE,URINE CLEAR (CLEAR); BILIRUBIN,URINE NEGATIVE (NEGATIVE); BLOOD, URINE NEGATIVE (NEGATIVE); COLOR,URINE YELLOW (YELLOW); LEUKOCYTE ESTERASE ,URINE NEGATIVE (NEGATIVE); NITRITE, URINE NEGATIVE (NEGATIVE); UGLUCOSE NEGATIVE (NEGATIVE)
[2017-02-20 17:56] LABS: MAGNESIUM 1.7 mg/dL (1.8-2.4); PHOSPHORUS 3.5 mg/dL (2.5-4.9)
--- NOTE | 2017-02-20 18:15 | NUR ---
PT LYING ON BED;EMT AT BEDSIDE;
--- NOTE | 2017-02-20 18:30 | NUR ---
PER DATA POWER CONSULTANT THERESA;PT CAN NOT BE TRANSFERED YET TO HER ROOM BECAUSE THERE IS NO BED YET;
--- NOTE | 2017-02-20 19:09 | NUR ---
Patient will be admitted to care of DR TERESA. Admited to MS. Will go to room 109 A. Belongings list completed. Report to SUMA WARD.
[2017-02-20] MEDS ORDERED: LACTULOSE 20 GM/30 ML UDC PO SCH ×2 (19:20→20:35)
[2017-02-20] MEDS ORDERED: LORazepam 1 MG TAB PO SCH ×2 (19:20→20:35)
--- NOTE | 2017-02-20 19:30 | NUR ---
ADMITTED 37 YEARS OLD FEMALE FROM ER VIA ANDREA, SUICIDAL IDEATION, 5150 HOLD. SITTER AT BEDSIDE AT ALL TIME. SEE NURSING ASSESSMENT AND HISTORY. ORIENTED TO ROOM AND UNIT ROUTINES. CALL LIGHT WITHIN REACH.
--- NOTE | 2017-02-20 20:00 | NUR ---
DINNER GIVEN. SITTER AT BEDSIDE AT ALL TIME. CALL LIGHT WITHIN REACH.
[2017-02-20] MEDS: NACL 0.9% 1,000 ML IV SCH (20:03)
[2017-02-20] MEDS: AMITRIPTYLINE 25 MG TAB PO SCH (20:39)
[2017-02-20] MEDS: QUEtiapine FUMARATE 100 MG TAB PO SCH (20:39)
[2017-02-20] MEDS: HYDROcodone/APAP 5/325 MG 1 TAB TAB PO PRN (20:39)
[2017-02-20] MEDS: DOCUSATE SODIUM 100 MG GELCAP PO SCH (20:39)
[2017-02-20] MEDS ORDERED: QUEtiapine FUMARATE 25 MG TAB PO SCH (21:00)
[2017-02-20] MEDS: LACTULOSE 20 GM/30 ML UDC PO SCH (21:14)
[2017-02-20] MEDS ORDERED: MAG SULF 2000 MG/WATER PREMIX 50 ML IV SCH (21:30)
[2017-02-20 21:43] VITALS: BP 125/79
--- NOTE | 2017-02-20 22:00 | NUR ---
TRANSFER ROOM TO [facility] VIA BED. SITTER AT BEDSIDE AT ALL TIME. CALL LIGHT WITHIN REACH.
--- NOTE | 2017-02-20 23:52 | NUR ---
SLEEPING WELL. NO COMPLAINS. SITTER AT BEDSIDE 1:1 AT ALL TIME. CALL LIGHT WITHIN REACH.
[2017-02-21] MEDS: HYDROcodone/APAP 5/325 MG 1 TAB TAB PO PRN ×4 (03:58→21:41)
--- NOTE | 2017-02-21 06:06 | NUR ---
NO COMPLAINS. CALL LIGHT WITHIN REACH. SLEEPING WELL.
--- NOTE | 2017-02-21 06:39 | NUR ---
SLEEPING, REFUSED BLOOD DRAW FROM [facility] AT THIS TIME, WANTS TO SLEEP. REFUSE TO TAKE PROTONIX BEFORE BREAKFAST. WILL ENDORSE TO DAY SHIFT.
[2017-02-21] MEDS: PANTOPRAZOLE 40 MG TABEC PO SCH (07:31)
--- NOTE | 2017-02-21 07:34 | NUR ---
ENDORSED CARE AT [place] RN, PATIENT IN STABLE CONDITION.
--- NOTE | 2017-02-21 07:40 | NUR ---
RECEIVED REPORT FROM CHROMIUM PLATER NURSE, PT IS RESTING IN BED, A/OX4, AMBULATORY, NO S/S OR RESPIRATORY DISTRESS OR DISCOMFORT NOTED, PT HAS MEDI PORT ON HER LEFT UPPER CHEST, PATENT, INTACT, FLUSHING WELL, SKIN IS INTACT, DISCUSSED PLAN OF CARE WITH PT, PT VERBALIZED UNDERSTANDING, SAFETY/FALL/SUICIDE PRECAUTIONS ARE IN PLACE, 1:1 SITTER IS AT BEDSIDE, CALL LIGHT IS WITHIN REACH, WILL CONTINUE TO MONITOR.
--- NOTE | 2017-02-21 07:41 | NUR ---
PER INFORMATION SYSTEMS OPERATOR NURSE, PATIENT REFUSED MORNING LABS TODAY.
[2017-02-21 08:00] VITALS: BP 104/69
--- NOTE | 2017-02-21 08:42 | NUR ---
PATIENT HAS BEEN SCREENED AND CATEGORIZED MODERATE NUTRITION RISK. PATIENT WILL BE SEEN WITHIN 3-5 DAYS OF ADMISSION. 02/23/17-02/25/[address]
[2017-02-21] MEDS: QUEtiapine FUMARATE 100 MG TAB PO SCH ×2 (09:00→21:25)
[2017-02-21] MEDS: DOCUSATE SODIUM 100 MG GELCAP PO SCH ×2 (09:00→21:25)
[2017-02-21] MEDS: PREGABALIN 50 MG CAP PO SCH ×3 (09:01→17:36)
[2017-02-21] MEDS: levETIRAcetam 500 MG TAB PO SCH ×3 (09:01→17:36)
[2017-02-21] MEDS: LACTULOSE 20 GM/30 ML UDC PO SCH ×2 (09:03→21:26)
--- NOTE | 2017-02-21 09:09 | NUR ---
PATIENT REQUESTED TO SPEAK TO HER DOCTOR. NOTIFIED DR. CAVAZOS, DOCTOR IN PATIENT ROOM SPEAKING WITH PATIENT.
--- NOTE | 2017-02-21 10:00 | NUR ---
PATIENT SLEEPING IN BED AT THIS TIME. 1:1 SITTER IS AT BEDSIDE.
--- NOTE | 2017-02-21 10:04 | NUR ---
CM NOTE RECEIVED ORDER FOR PSYCH PLACEMENT. FAXED INQUIRY/CLINICAL INFO TO [facility] [phone] # [phone].
--- NOTE | 2017-02-21 13:00 | NUR ---
PT RESTING IN BED EATING LUNCH, 1:1 SITTER IS AT BEDSIDE, WILL CONTINUE TO MONITOR.
[2017-02-21] MEDS: NACL 0.9% 1,000 ML IV SCH ×2 (13:28→17:45)
--- NOTE | 2017-02-21 14:23 | NUR ---
RAJEEV NOTE PER YELENA OF [facility]# [phone], THEY HAVE SENT INQUIRY TO SEVERAL PSYCH FACILITIES INCLUDING [facility], [facility] AMONG OTHERS AND PSYCH FACILITIES EVEN IN THE [facility] BUT THERE IS NO ACCEPTING PSYCH FACILITY AND NO AVAILABLE BEDS AT THIS TIME. CHARGE NURSE JABIER VILLANUEVA. Addendum: 02/21/17 at 1426 by Dang March CM I GAVE YELENA OF [facility] THE NUMBER TO THE CHARGE NURSE OF THE NURSING FLOOR WHERE PATIENT IS IN CASE PATIENT GETS ACCEPTED AND BED AVAILABLE AT A PSYCH FACILITY AT A LATER TIME TODAY.
[2017-02-21] MEDS: MAGNESIUM HYDROXIDE 2400 MG/30 ML UDC PO PRN (15:12)
[2017-02-21] MEDS ORDERED: MAG SULF 2000 MG/WATER PREMIX 50 ML IV ONE (15:40)
[2017-02-21 16:00] VITALS: BP 122/88
--- NOTE | 2017-02-21 16:30 | NUR ---
PT SLEEPING IN BED AT THIS TIME, 1:1 SITTER AT BEDSIDE.
[2017-02-21] MEDS: ACETAMINOPHEN 325 MG TAB PO PRN (17:39)
--- NOTE | 2017-02-21 19:16 | NUR ---
ENDORSED PT TO RIGHT OF WAY CUTTER NURSE FOR CONTINUITY OF CARE, PT STABLE AT THIS TIME.
--- NOTE | 2017-02-21 19:17 | NUR ---
RECD. RESTING IN BED COMFORTABLY SLEEPING BUT EASILY WAKES UP WHEN NAME CALLED. A/OX4. RESPIRATION EVEN AND UNLABORED, IV OF NS AT 50 ML/HR INFUSING, RIGHT UPPER CHEST MEDIPORT. NO APPEARANCE OF PAIN NOTED 0/10. WILL CONTINUE TO MONITOR PATIENT BEHAVIOR AND ENSURE SAFETY THROUGHOUT SHIFT, BEING THE NURSE AND 1:1 SITTER FOR PATIENT.
--- NOTE | 2017-02-21 19:25 | NUR ---
SEEMS DROWSY, CONTINUED SLEEPING SOUNDLY, SNORING AT TIMES. SAFETY MEASURES ENFORCED. CALL LIGHT IN REACH.
[2017-02-21] MEDS: AMITRIPTYLINE 25 MG TAB PO SCH (21:25)
--- NOTE | 2017-02-21 21:25 | NUR ---
WAKEN UP TO TAKE PO MEDICATIONS FOR THE NIGHT. COOPERATIVE. STATED STILL WITH THOUGHTS OF HURTING SELF BUT JUST FEELING ANXIOUS AT THIS TIME.
--- NOTE | 2017-02-21 22:00 | NUR ---
Patient's Plan of Care was discussed and reviewed with PIPED BUTTONHOLE MACHINE OPERATOR: SHIRLEY WARREN
--- NOTE | 2017-02-21 23:45 | NUR ---
WOKE UP, WENT TO BR TO VOID, BACK TO BED AFTER VOIDING AND SLEPT AGAIN.
[2017-02-22] VITALS: BP 135/92
--- NOTE | 2017-02-22 04:15 | NUR ---
WOKE UP, AMBULATED TO BR TO VOID, BACK TO BED AFTER VOIDING.
[2017-02-22] MEDS: HYDROcodone/APAP 5/325 MG 1 TAB TAB PO PRN ×3 (04:22→16:40)
--- NOTE | 2017-02-22 04:45 | NUR ---
SLEEPING COMFORTABLY IN BED.
--- NOTE | 2017-02-22 05:30 | NUR ---
REFUSED BLOOD DRAW TO BE DRAWN FROM HER MEDIPORT FOR AM LAB TEST.
--- NOTE | 2017-02-22 06:00 | NUR ---
NO NOTED SUICIDAL ATTEMPT DURING SHIFT. SAFETY MAINTAINED. ENDORSED TO NEW SITTER AT THE BEDSIDE FOR MONITORING.
[2017-02-22] MEDS: PANTOPRAZOLE 40 MG TABEC PO SCH (06:26)
--- NOTE | 2017-02-22 07:00 | NUR ---
ENDORSED TO SUMA OWUSU FOR CONTINUITY OF CARE.
--- NOTE | 2017-02-22 07:20 | NUR ---
RECEIVED PT IN BED. ASLEEP. AROUSABLE TO VOICE. ALERT ORIENTED X4. NO SOB NOTED. DENIES ANY PAIN OR DISCOMFORT AT THIS TIME. MAINTAINED ON 51:50, PT AMBULATORY. SAFETY PRECAUTION IN PLACE. CALL LIGHT WITHIN REACH.
[2017-02-22 08:00] VITALS: BP 113/72
[2017-02-22] MEDS: LACTULOSE 20 GM/30 ML UDC PO SCH ×2 (08:47→20:18)
[2017-02-22] MEDS: DOCUSATE SODIUM 100 MG GELCAP PO SCH ×2 (08:48→20:19)
[2017-02-22] MEDS: PREGABALIN 50 MG CAP PO SCH ×3 (08:48→16:40)
[2017-02-22] MEDS: QUEtiapine FUMARATE 100 MG TAB PO SCH ×2 (08:48→20:19)
[2017-02-22] MEDS: levETIRAcetam 500 MG TAB PO SCH ×3 (08:49→16:40)
[2017-02-22] MEDS: NACL 0.9% 1,000 ML IV SCH (12:20)
--- NOTE | 2017-02-22 12:20 | NUR ---
PATIENT COMPLAINING ABOUT HER FOOD. VERBALIZED "FOOD GETS STUCK IN MY GUMS." PATIENT DEMANDING FOR ANOTHER TRAY. DIRECTOR OF [facility], ML MOISE, MADE AWARE. PATIENT WAS YELLING, "GET OUT OF MY ROOM NOW." PATIENT REQUESTED FOR PUREED DIET. WILL LET MD KNOW.
--- NOTE | 2017-02-22 14:03 | NUR ---
DR. ALVAREZ MADE AWARE THAT PT COMPLAINS OF FOOD GETTING IN HER GUMS WITH HER REGULAR DIET AND REQUESTS TO HAVE PUREE DIET. ORDER MADE AND CARRIED OUT.
[2017-02-22] MEDS: MAGNESIUM HYDROXIDE 2400 MG/30 ML UDC PO PRN (14:34)
[2017-02-22] MEDS: ACETAMINOPHEN 325 MG TAB PO PRN (14:49)
[2017-02-22] MEDS: ONDANSETRON 4 MG/2 ML VIAL IVP PRN (14:50)
[2017-02-22 16:00] VITALS: BP 119/81
--- NOTE | 2017-02-22 19:15 | NUR ---
RECEIVED REPORT FROM AM NURSE. PT IS RESTING IN BED, A/OX4, AMBULATORY, NO SIGNS OF ACUTE DISTRESS NOTED. MEDI PORT ACCESS ON HER LEFT UPPER CHEST, PATENT, INTACT, FLUSHING WELL. PLAN OF CARE DISCUSSED, PT VERBALIZED UNDERSTANDING. SAFETY/SUICIDE PRECAUTIONS IN PLACE, 1:1 SITTER AT BEDSIDE, BED IN LOW POSITION, CALL LIGHT IS WITHIN REACH, WILL CONTINUE TO MONITOR.
--- NOTE | 2017-02-22 19:37 | NUR ---
PT KEPT CLEAN, DRY, AND COMFORTABLE. NEEDS ATTENDED. ENDORSED TO NEXT SHIFT. PT ON STABLE CONDITION. FOR CONTINUITY OF CARE.
--- NOTE | 2017-02-22 20:00 | NUR ---
PT REFUSED VITAL SIGNS. WILL CONTINUE TO MONITOR.
[2017-02-22] MEDS: AMITRIPTYLINE 25 MG TAB PO SCH (20:19)
[2017-02-23] MEDS: HYDROcodone/APAP 5/325 MG 1 TAB TAB PO PRN ×4 (01:05→20:53)
--- NOTE | 2017-02-23 02:58 | NUR ---
PT SLEEPING, AROUSABLE TO VOICE. NO SIGNS OF ACUTE DISTRESS NOTED. RESPIRATIONS EVEN AND UNLABORED. SAFETY PRECAUTIONS IN PLACE. 1:2 SITTER AT BEDSIDE. BED IN LOW POSITION, BILATERAL HALF SIDE RAILS UP, CALL LIGHT WITHIN REACH, WILL CONTINUE TO MONITOR.
[2017-02-23 04:00] VITALS: BP 95/62
[2017-02-23] MEDS: PANTOPRAZOLE 40 MG TABEC PO SCH (06:13)
--- NOTE | 2017-02-23 07:12 | NUR ---
ENDORSED PT TO AM NURSE FOR CONTINUITY OF CARE. PT IS IN STABLE CONDITION.
--- NOTE | 2017-02-23 07:16 | NUR ---
RECEIVED PT IN BED. AWAKE. ALERT ORIENTEDX4. NO SOB NOTED. DENIES ANY PAIN OR DISCOMFORT AT THIS TIME. AMBULATORY. SAFETY PRECAUTION IN PLACE. CALL LIGHT WITHIN REACH.
[2017-02-23 08:00] VITALS: BP 118/75
[2017-02-23] MEDS: PREGABALIN 50 MG CAP PO SCH ×3 (09:18→17:20)
[2017-02-23] MEDS: levETIRAcetam 500 MG TAB PO SCH ×3 (09:18→17:20)
[2017-02-23] MEDS: LACTULOSE 20 GM/30 ML UDC PO SCH ×2 (09:18→20:28)
[2017-02-23] MEDS: QUEtiapine FUMARATE 100 MG TAB PO SCH ×2 (09:18→20:29)
[2017-02-23] MEDS: DOCUSATE SODIUM 100 MG GELCAP PO SCH ×2 (09:18→20:29)
[2017-02-23] MEDS: ONDANSETRON 4 MG/2 ML VIAL IVP PRN (11:14)
[2017-02-23] MEDS: ACETAMINOPHEN 325 MG TAB PO PRN (11:14)
[2017-02-23 12:00] VITALS: BP 118/72
[2017-02-23] MEDS: MAGNESIUM HYDROXIDE 2400 MG/30 ML UDC PO PRN (15:32)
[2017-02-23 16:00] VITALS: BP 122/78
--- NOTE | 2017-02-23 16:06 | NUR ---
tire worker contacted behavioral health call center and spoke to Pamela . Pamela reported that no bed yet has been found for Patient. Telemarketer Provided Floor number to be contacted if bed is found
--- NOTE | 2017-02-23 17:30 | NUR ---
PT VERBALIZED THAT SHE HAS BEEN PICKING ON HER MEDIPORT DRESSING SO IT BECAME LOOSE. CHANGED MEDIPORT DRESSING BY STERILE TECHNIQUE. KEPT AREA CLEAN AND DRY.
--- NOTE | 2017-02-23 17:33 | NUR ---
MOVED TO RM 110B. PT AWAKE, ALERT, MAINTAINED ON ONE ON ONE SITTER, NO SUICIDAL IDEATION NOTED AT THIS TIME.
--- NOTE | 2017-02-23 18:23 | NUR ---
PT KEPT CLEAN, DRY AND COMFORTABLE. NEEDS ATTENDED, WILL ENDORSE TO NEXT SHIFT. PT ON STABLE CONDITION FOR CONTINUITY OF CARE.
--- NOTE | 2017-02-23 20:00 | NUR ---
PATIENT IS CURRENTLY AWAKE ALERT ORIENTED STANDING AT THE DOOR FRAME AND DEMANDING SHE GETS FOOD SHE IS CURSING AND YELLING AND FIGHTING WITH THE STAFF.IVF INFUSING WELL WILL CONTINUE TO MONITOR.PATIENT REFUSED TO HAVE VITALS SIGNS CHECKED AT THIS TIME. PATIENT TOLD TO GO BACK IN BED AND I WILL CALL FOR A ADDITIONAL HS SNACK FOR TONIGHT ORDERED BY MD TC CALDERON AND PATIENT VERBALIZES UNDERSTANDING THAT SHE CAN ONLY HAVE THAT EXTRA SNACK AND NO MORE FOR THE REST OF THE NIGHT. SITTER 1:1 COLEEN WATCHING OVER THE PATIENT.WILL CONTINUE TO MONITOR.
--- NOTE | 2017-02-23 20:00 | NUR ---
Patient's Plan of Care was discussed and reviewed with ASSISTANT MEN'S SOCCER COACH: Mari ACUÑA
[2017-02-23] MEDS: AMITRIPTYLINE 25 MG TAB PO SCH (20:29)
--- NOTE | 2017-02-23 22:15 | NUR ---
PATIENT IS RESTING IN BED FRESH WATER WAS GIVEN PATIENT IS MORE CALM AND FOLLOWING INSTRUCTIONS WELL.PATIENT STATES,"I JUST WANT TO GO TO SLEEP."WILL CONTINUE TO MONITOR.
[2017-02-24] VITALS: BP 123/85
--- NOTE | 2017-02-24 00:15 | NUR ---
PATIENT IS ASKING FOR A SLEEPING PILL AND I CALLED THE RESIDENT AND ASKED HER AND SHE TOLD ME THAT SHE HAS A NOTE THAT DOESN'T ALLOW HER TO ORDER ANY BENZO MEDS OR SEDATIVES SO MD TC CALDERON SAID SHE WILL ORDER AN EXTRA DOSE OF BENADRYL FOR THE PATIENT AND SHE WILL PLACE THE ORDER.
--- NOTE | 2017-02-24 00:40 | NUR ---
PATIENT WAS MEDICATED WITH BENADRYL AND TOOK THE BENADRYL PATIENT UNDERSTANDS THAT MD COULDN'T ORDER ANY SLEEPING PILL FOR HER. PATIENT CURRENTLY RESTING CALM IN BED.IVF INFUSING WELL.CONTINUES TO BE MONITORED BY LORENA MIN 1:1 SITTER CONTINUES TO MONITOR THE PATIENT CLOSELY.
[2017-02-24] MEDS: NACL 0.9% 1,000 ML IV SCH ×2 (00:42→20:58)
[2017-02-24] MEDS: HYDROcodone/APAP 5/325 MG 1 TAB TAB PO PRN ×3 (03:00→15:22)
--- NOTE | 2017-02-24 03:06 | NUR ---
PATIENT AWAKE RESTING CALM AND QUIETLY IN BED NEEDS MET FRESH WATER GIVEN WILL CONTINUE TO MONITOR.
[2017-02-24] MEDS: PANTOPRAZOLE 40 MG TABEC PO SCH (06:49)
--- NOTE | 2017-02-24 06:49 | NUR ---
PATIENT STABLE RESTING IN BED WAS SEEN BY MD HANEY UPDATED ON PATIENT CURRENT STATUS.PATIENT CALM RESTING IN BED IN NO DISTRESS.
--- NOTE | 2017-02-24 07:15 | NUR ---
RECEIVED REPORT FROM NIGHT NURSE AT PT'S BEDSIDE. AWAKE, ALERT, AND ORIENTEDX4. NO S/S OF ACUTE DISTRESS NOTED. DENIES ANY PAIN AT THIS TIME. AMBULATORY. MEDIPORT NOTED NOTED ON THE RIGHT UPPER CHEST, INFUSING WELL. SAFETY PRECAUTION IN PLACE, BED IN LOWEST POSITION, CALL LIGHT WITHIN REACH, WILL CONTINUE TO MONITOR.
--- NOTE | 2017-02-24 07:28 | NUR ---
PATIENT STABLE SITTER 1:1 WATCHING THE PATIENT REPORT ENDORSED TO SUMA ALEJANDRO.HE WILL RESUME CARE OF THE PATIENT.
[2017-02-24 08:00] VITALS: BP 129/81
[2017-02-24] MEDS: LACTULOSE 20 GM/30 ML UDC PO SCH ×2 (09:20→20:02)
[2017-02-24] MEDS: DOCUSATE SODIUM 100 MG GELCAP PO SCH ×2 (09:20→20:01)
[2017-02-24] MEDS: levETIRAcetam 500 MG TAB PO SCH ×3 (09:21→17:49)
[2017-02-24] MEDS: ONDANSETRON 4 MG/2 ML VIAL IVP PRN ×2 (09:22→19:37)
[2017-02-24] MEDS: QUEtiapine FUMARATE 100 MG TAB PO SCH ×2 (09:22→20:01)
[2017-02-24] MEDS: PREGABALIN 50 MG CAP PO SCH ×3 (09:22→17:49)
--- NOTE | 2017-02-24 10:30 | NUR ---
PT WALKING AROUND IN THE ROOM, NO S/S OF DISTRESS NOTED. PT REQUESTED BENADRYL FOR ITCHING OVER THE CHEST. WILL MEDICATE.
--- NOTE | 2017-02-24 13:00 | NUR ---
PT DENIES ANY SUICIDAL IDEATION. PT REQUESTED ONE PUDDING. NO S/S OF ACUTE DISTRESS. WILL CONTINUE TO MONITOR.
--- NOTE | 2017-02-24 14:00 | NUR ---
PT SLEEPING, NO S/S OF DISTRESS NOTED.
[2017-02-24] MEDS: MAGNESIUM HYDROXIDE 2400 MG/30 ML UDC PO PRN (15:22)
[2017-02-24 16:10] VITALS: BP 122/90
--- NOTE | 2017-02-24 19:25 | NUR ---
ENDORSED PATIENT TO THE HISTORY DEPARTMENT CHAIR RN. PT IS IN STABLE CONDITION.
--- NOTE | 2017-02-24 19:37 | NUR ---
RECEIVED REPORT FROM AM NURSE. PT RESTING IN BED, AOX4, AMBULATORY, ABLE TO VERBALIZE NEEDS. PT DENIES CHEST PAIN, SOB OR S/S OF ACUTE DISTRESS. R UPPER CHEST MEDIPORT ASYMPTOMATIC, PATENT AND INTACT. IVF INFUSING WELL. DISCUSSED AND REVIEWED PLAN OF CARE WITH PT. PT VERBALIZED UNDERSTANDING. PT C/O NAUSEA, ADMINISTERED ZOFRAN IVP PRN ORDERED WITH EDUCATION. ALL NEEDS MET. 1:1 SITTER WITH CLOSE MONITORING MAINTAINED, ENVIRONMENT CHECKED, SAFETY MEASURES ENSURED. WILL CONTINUE TO MONITOR.
[2017-02-24 20:00] VITALS: BP 131/77
[2017-02-24] MEDS: AMITRIPTYLINE 25 MG TAB PO SCH (20:02)
[2017-02-24] MEDS: busPIRone 5 MG TAB PO SCH (20:02)
--- NOTE | 2017-02-24 20:06 | NUR ---
ADMINISTERED DUE MEDS WITH EDUCATION, PT VERBALIZED UNDERSTANDING, TOLERATED MEDS WELL. ALL NEEDS MET. IVF INFUSING WELL. 1:1 SITTER MAINTAINED WITH CLOSE MONITORING, SAFETY MEASURES ENSURED. WILL CONTINUE TO MONITOR.
--- NOTE | 2017-02-24 20:35 | NUR ---
DR HERNANDEZ AT BEDSIDE TO DISCUSS PT CONDITION AND PLAN OF CARE WITH PT. WAS NOTIFIED THAT PT STILL MEETS 5150 CRITERIA.
[2017-02-25] VITALS: BP 103/71
--- NOTE | 2017-02-25 00:01 | NUR ---
PT SLEEPING COMFORTABLY, AROUSABLE TO NAME, NO S/S OF ACUTE DISTRESS. ALL NEEDS MET. IVF INFUSING WELL. 1:1 SITTER WITH CLOSE MONITORING MAINTAINED. ENVIRONMENT CHECKED, SAFETY MEASURES ENSURED. WILL CONTINUE TO MONITOR.
[2017-02-25] MEDS: HYDROcodone/APAP 5/325 MG 1 TAB TAB PO PRN ×4 (03:17→21:38)
--- NOTE | 2017-02-25 03:18 | NUR ---
PT C/O PAIN. SEE PAIN ASSESSMENT. ADMINISTERED NORCO PO PRN ORDERED WITH EDUCATION. PT VERBALIZED UNDERSTANDING, TOLERATED MED WELL. PT ABLE TO AMBULATE INDEPENDENTLY TO RESTROOM WITH STEADY GAIT. ALL NEEDS MET. IVF INFUSING WELL. 1:1 SITTER WITH CLOSE MONITORING MAINTAINED. BELONGINGS CHECKED, SAFETY MEASURES ENSURED. WILL CONTINUE TO MONITOR.
[2017-02-25] MEDS: PANTOPRAZOLE 40 MG TABEC PO SCH (05:55)
[2017-02-25] MEDS: ONDANSETRON 4 MG/2 ML VIAL IVP PRN (05:59)
--- NOTE | 2017-02-25 06:06 | NUR ---
ADMINISTERED DUE MED PROTONIX PO WITH EDUCATION. PT C/O "NOT FEELING GOOD," PT C/O PAIN "ALL OVER" UNRELIEVED BY NORCO PO PRN [address] JAMMIE MD AT BEDSIDE TO SPEAK WITH PT, ORDERS PENDING, WILL CARRY OUT. PT C/O NAUSEA, ADMINISTERED ZOFRAN IVP PRN ORDERED. ALL NEEDS MET. IVF INFUSING WELL. 1:1 SITTER WITH CLOSE MONITORING. ENVIRONMENT CHECKED, SAFETY MEASURES ENSURED. WILL CONTINUE TO MONITOR.
[2017-02-25] MEDS ORDERED: KETOROLAC 15 MG/ML VIAL IVP ONE (06:10)
--- NOTE | 2017-02-25 07:10 | NUR ---
PT REPORTS SLIGHT RELIEF FROM ZOFRAN IVP PRN AND TORADOL IVP PRN. ENDORSED PLAN OF CARE TO AM NURSE. CONDITION STABLE.
--- NOTE | 2017-02-25 07:20 | NUR ---
RECEIVED REPORT FROM NIGHT NURSE AT PT'S BEDSIDE. AWAKE, ALERT, AND ORIENTEDX4. NO S/S OF ACUTE DISTRESS NOTED. DENIES ANY PAIN AT THIS TIME. AMBULATORY. MEDIPORT NOTED NOTED ON THE RIGHT UPPER CHEST, INFUSING WELL, NS 50ML/HR. 1;1 SITTER. SAFETY PRECAUTION IN PLACE, BED IN LOWEST POSITION, CALL LIGHT WITHIN REACH, WILL CONTINUE TO MONITOR.
[2017-02-25 08:00] VITALS: BP 124/85
--- NOTE | 2017-02-25 08:55 | NUR ---
PT WALKING AROUND IN THE ROOM, NO S/S OF DISTRESS NOTED. PT REQUESTED BENADRYL FOR ITCHING OVER THE CHEST. WILL MEDICATE.
[2017-02-25] MEDS: levETIRAcetam 500 MG TAB PO SCH ×3 (09:05→17:54)
[2017-02-25] MEDS: QUEtiapine FUMARATE 100 MG TAB PO SCH ×2 (09:05→21:38)
[2017-02-25] MEDS: busPIRone 5 MG TAB PO SCH ×2 (09:06→21:39)
[2017-02-25] MEDS: LACTULOSE 20 GM/30 ML UDC PO SCH ×2 (09:06→21:36)
[2017-02-25] MEDS: PREGABALIN 50 MG CAP PO SCH ×3 (09:06→17:54)
[2017-02-25] MEDS: DOCUSATE SODIUM 100 MG GELCAP PO SCH ×2 (09:06→21:36)
--- NOTE | 2017-02-25 11:00 | NUR ---
PT SLEEPING, NO S/S OF DISTRESS NOTED. WILL CONTINUE TO MONITOR.
--- NOTE | 2017-02-25 13:30 | NUR ---
PT DENIES ANY SUICIDAL IDEATION. PT REQUESTED ONE PUDDING. NO S/S OF ACUTE DISTRESS. WILL CONTINUE TO MONITOR.
[2017-02-25] MEDS: ACETAMINOPHEN 325 MG TAB PO PRN (14:58)
[2017-02-25] MEDS: MAGNESIUM HYDROXIDE 2400 MG/30 ML UDC PO PRN (14:58)
--- NOTE | 2017-02-25 15:19 | NUR ---
02/25/17 RD INITIAL ASSESSMENT COMPLETED PLEASE REFER TO NUTRITION ASSESSMENT UNDER CARE ACTIVITY FOR ESTIMATED NUTRITIONAL NEEDS. RD RECOMMENDATIONS: 1. CONTINUE PUREED DIET MEDICALLY APPROPRIATE. -NOTE PT WITH GOOD APPETITE, CONSUMING 100% OF HER MEALS. 2. RD OFFERED PT DIET EDUCATION, PT DECLINED. 3. RD WILL F/U 7 DAYS; LOW RISK. ANDREEA STOREY, RD
[2017-02-25] MEDS: NACL 0.9% 1,000 ML IV SCH (15:31)
--- NOTE | 2017-02-25 19:25 | NUR ---
ENDORSED PT TO RUBY DEVELOPER NURSE. PT IS IN STABLE CONDITION.
--- NOTE | 2017-02-25 19:26 | NUR ---
RECD. RESTING IN BED, AWAKE, A/OX4. RESPIRATION EVEN AND UNLABORED. IV OF NS AT 50 ML/HR INFUSING, RIGHT UPPER CHEST MEDIPORT. STATED NO PLAN OF THIS TIME TO HURT HERSELF. PLAN OF CARE FOR THE SHIFT DISCUSSED. VERBALIZED UNDERSTANDING. DENIES PAIN 0/10. ON 1:1 SITTER MONITORING PATIENT FOR SAFETY.
[2017-02-25 20:00] VITALS: BP 138/91
--- NOTE | 2017-02-25 21:00 | NUR ---
Patient's Plan of Care was discussed and reviewed with PAYMENT COLLECTOR: SHIRLEY WARREN
--- NOTE | 2017-02-25 21:36 | NUR ---
DUE PO MEDICATIONS GIVEN. WANTS MEDICATION FOR SLEEP, STATED UNABLE TO SLEEP LAST NIGHT.
[2017-02-25] MEDS: AMITRIPTYLINE 25 MG TAB PO SCH (21:39)
--- NOTE | 2017-02-25 22:00 | NUR ---
RESIDENT ON DUTY DID NOT ORDER SLEEPING PILL, PATIENT HAS ALREADY MEDICATION THAT CAN INDUCE SLEEP.
--- NOTE | 2017-02-26 | NUR ---
SLEEPING COMFORTABLY IN BED.
[2017-02-26] MEDS: HYDROcodone/APAP 5/325 MG 1 TAB TAB PO PRN ×3 (04:28→22:15)
[2017-02-26] MEDS: PANTOPRAZOLE 40 MG TABEC PO SCH (06:51)
--- NOTE | 2017-02-26 06:52 | NUR ---
ABLE TO SLEEP WELL DURING THE NIGHT. NO SUICIDAL BEHAVIOR NOTED. CONDITION REMAIN STABLE. 1:1 SITTER CONTINUOUSLY MONITORING PATIENT. WILL ENDORSED TO AM NURSE FOR CONTINUITY OF CARE.
--- NOTE | 2017-02-26 07:10 | NUR ---
ENDORSED TO SUMA OWUSU FOR CONTINUITY OF CARE.
--- NOTE | 2017-02-26 07:28 | NUR ---
RECEIVED PT IN BED. ASLEEP, AROUSABLE TO VOICE. ALERT ORIENTEDX4. NO SOB NOTED. DENIES ANY PAIN OR DISCOMFORT AT THIS TIME. PT AMBULATORY. NO SUICIDAL IDEATION NOTED AT THIS TIME. MAINTAINED ON 51:50. SAFETY PRECAUTION IN PLACE. CALL LIGHT WITHIN REACH.
[2017-02-26 08:00] VITALS: BP 119/71
[2017-02-26] MEDS: NACL 0.9% 1,000 ML IV SCH (08:12)
[2017-02-26] MEDS: ONDANSETRON 4 MG/2 ML VIAL IVP PRN (08:13)
[2017-02-26] MEDS: busPIRone 5 MG TAB PO SCH ×2 (08:13→22:10)
[2017-02-26] MEDS: PREGABALIN 50 MG CAP PO SCH ×3 (08:13→16:00)
[2017-02-26] MEDS: QUEtiapine FUMARATE 100 MG TAB PO SCH ×2 (08:14→22:10)
[2017-02-26] MEDS: DOCUSATE SODIUM 100 MG GELCAP PO SCH ×2 (08:14→22:09)
[2017-02-26] MEDS: levETIRAcetam 500 MG TAB PO SCH ×3 (08:14→16:01)
[2017-02-26] MEDS: LACTULOSE 20 GM/30 ML UDC PO SCH ×2 (08:14→22:09)
[2017-02-26] MEDS: ACETAMINOPHEN 325 MG TAB PO PRN ×2 (08:15→17:05)
[2017-02-26] MEDS: KETOROLAC 15 MG/ML VIAL IVP PRN ×2 (09:27→15:56)
--- NOTE | 2017-02-26 11:34 | NUR ---
PT DEMANDING FOR SOME SNACKS, PER FACILITY PROTOCOL PT CANNOT HAVE EXTRA SNACKS. EXPLAINED TO PT. PT GOT UPSET YELLING OUTSIDE HER ROOM. CALLED SECURITY. SECURITY CAME, PT WENT BACK INSIDE HER ROOM.
[2017-02-26] MEDS: MAGNESIUM HYDROXIDE 2400 MG/30 ML UDC PO PRN (15:08)
[2017-02-26 15:37] VITALS: BP 125/78
--- NOTE | 2017-02-26 18:57 | NUR ---
PT KEPT CLEAN, DRY AND COMFORTABLE, NEEDS ATTENDED WILL ENDORSE TO NEXT SHIFT, PT ON STABLE CONDITION FOR CONTINUITY OF CARE.
--- NOTE | 2017-02-26 19:20 | NUR ---
RECEIVED REPORT FROM AM NURSE. PT IS SLEEPING, AROUSABLE TO VOICE. NO SIGNS OF ACUTE DISTRESS. RESPIRATIONS EVEN AND UNLABORED. IV ACCESS INTACT, PATENT AND ASYMPTOMATIC. SAFETY MEASURES IN PLACE. BED IN LOW POSITION, BILATERAL HALF SIDE RAILS UP, CALL LIGHT WITHIN REACH. SITTER AT THE BEDSIDE. WILL CONTINUE TO MONITOR.
[2017-02-26 20:00] VITALS: BP 133/80
[2017-02-26] MEDS: AMITRIPTYLINE 25 MG TAB PO SCH (22:10)
--- NOTE | 2017-02-27 02:12 | NUR ---
PT SLEEPING, AROUSABLE TO VOICE. NO SIGNS OF ACUTE DISTRESS NOTED. RESPIRATIONS EVEN AND UNLABORED. SAFETY PRECAUTIONS IN PLACE. 1:1 SITTER AT BEDSIDE. BED IN LOW POSITION, BILATERAL HALF SIDE RAILS UP, CALL LIGHT WITHIN REACH, WILL CONTINUE TO MONITOR.
[2017-02-27 04:00] VITALS: BP 135/93
[2017-02-27] MEDS: PANTOPRAZOLE 40 MG TABEC PO SCH (05:44)
[2017-02-27] MEDS: HYDROcodone/APAP 5/325 MG 1 TAB TAB PO PRN ×3 (05:44→17:51)
--- NOTE | 2017-02-27 07:12 | NUR ---
ENDORSED PT FOR CONTINUITY OF CARE. PT IS IN STABLE CONDITION.
--- NOTE | 2017-02-27 07:15 | NUR ---
RECEIVED REPORT FROM SURGEON PARTNER RN. PATIENT IS AAOX4, NO SIGNS AND SYMPTOMS OF ACUTE DISTRESS NOTED AT THIS TIME. PATIENT HAS A PORT THAT IS INFUSING NS AT 50 ML/HR. BED IN LOWEST POSITION, CALL LIGHT PLACED WITHIN REACH, SIDE RAILS UP X2. PATIENT HAS 1:1 SITTER. WILL CONTINUE TO MONITOR.
--- NOTE | 2017-02-27 08:20 | NUR ---
PATIENTS VITAL SIGNS ARE STABLE. WILL CONTINUE TO MONITOR.
[2017-02-27] MEDS: QUEtiapine FUMARATE 100 MG TAB PO SCH ×2 (08:30→21:29)
[2017-02-27] MEDS: busPIRone 5 MG TAB PO SCH ×2 (08:31→21:27)
[2017-02-27] MEDS: levETIRAcetam 500 MG TAB PO SCH ×3 (08:32→17:17)
[2017-02-27] MEDS: PREGABALIN 50 MG CAP PO SCH ×2 (08:32→17:17)
[2017-02-27] MEDS: DOCUSATE SODIUM 100 MG GELCAP PO SCH ×2 (08:32→21:28)
[2017-02-27] MEDS: KETOROLAC 15 MG/ML VIAL IVP PRN ×2 (08:33→21:24)
[2017-02-27] MEDS: LACTULOSE 20 GM/30 ML UDC PO SCH ×2 (08:33→21:28)
[2017-02-27] MEDS: NACL 0.9% 1,000 ML IV SCH (09:28)
[2017-02-27 12:00] VITALS: BP 122/92
--- NOTE | 2017-02-27 12:00 | NUR ---
PATIENT IN ROOM, READING A MAGAZINE. WILL CONTINUE TO MONITOR.
--- NOTE | 2017-02-27 12:38 | NUR ---
CALLED [facility] [phone]. SPOKE WITH LOUIE, NO PSYCH BEDS.
--- NOTE | 2017-02-27 14:12 | NUR ---
PATIENT UPSET THAT HER LYRICA FELL OFF, MADE DOCTOR ANTONIO AWARE TO REORDER THE MEDICATION.
[2017-02-27] MEDS: MAGNESIUM HYDROXIDE 2400 MG/30 ML UDC PO PRN (15:52)
--- NOTE | 2017-02-27 19:30 | NUR ---
ENDORSED PATIENT TO DISTRIBUTION SALES REPRESENTATIVE RN FOR CONTINUITY OF CARE. PATIENT IN STABLE CONDITION.
--- NOTE | 2017-02-27 19:31 | NUR ---
RECEIVED PT FROM JESUS RN PT IS AAOX4 NOT ALLUCINATIONS NOTED REMAIN CALM 51/50 SITTER AT SIDE NOT SUICIDE IDEATIION AT THIS TIME IV ON RT UPPER CHEST PORT INITIAL ASSESSMENT DONE
[2017-02-27 20:00] VITALS: BP 140/84
[2017-02-27] MEDS: AMITRIPTYLINE 25 MG TAB PO SCH (21:29)
--- NOTE | 2017-02-27 22:00 | NUR ---
PT SLEEPING NOT DISTRESS NOTED SITTER AT BED SIDE REMAIN STABLE AT THIS TIME
[2017-02-28] MEDS: HYDROcodone/APAP 5/325 MG 1 TAB TAB PO PRN ×4 (01:39→21:06)
[2017-02-28] MEDS: NACL 0.9% 1,000 ML IV SCH (01:42)
--- NOTE | 2017-02-28 01:50 | NUR ---
PT AWAKE MEDIC GIVEN ORDER FOR PAIN NOT DISTRESS NOTED SITTER AT BED SIDE
[2017-02-28] MEDS: ONDANSETRON 4 MG/2 ML VIAL IVP PRN ×2 (03:03→16:42)
[2017-02-28] MEDS: KETOROLAC 15 MG/ML VIAL IVP PRN (03:03)
[2017-02-28 04:00] VITALS: BP 116/81
--- NOTE | 2017-02-28 04:14 | NUR ---
AFTER PAIN MEDIC GIVEN PT SLEEP QUIET SITTER AT BED SIDE , NOT DISTRES NOTED
--- NOTE | 2017-02-28 06:00 | NUR ---
SPONGE BATH GIVEN LINEN CHANGED IV ON RT UPPER CHEST PORT CATH INFUSING WELL, NOT AGITATION AT THIS TIME SITTER AT BED SIDE
[2017-02-28] MEDS: PANTOPRAZOLE 40 MG TABEC PO SCH (06:04)
--- NOTE | 2017-02-28 07:20 | NUR ---
RECEIVED REPORT FROM OTOLARYNGOLOGY SURGEON NURSE, PT IS SLEEPING IN BED, BUT EASILY AWAKEN, PT IS A/OX4, AMBULATORY, PT HAS MEDI PORT ON HER RIGHT UPPER CHEST CHEST PATENT, INTACT, FLUSHING WELL, NO S/S OF RESPIRATORY DISTRESS OR DISCOMFORT NOTED, DISCUSSED PLAN OF CARE WITH PT, PT VERBALIZED UNDERSTANDING, SAFETY/FALL/SUICIDE PRECAUTIONS ARE IN PLACE, 1:1 SITTER IS AT PT BEDSIDE, WILL CONTINUE TO MONITOR.
[2017-02-28 08:00] VITALS: BP 124/82
--- NOTE | 2017-02-28 09:00 | NUR ---
PATIENT ACCIDENTLY PULLED OUT HER MEDIPORT, NEW MEDIPORT INSERTED BY TOMY CHARGE NURSE.
[2017-02-28] MEDS: PREGABALIN 50 MG CAP PO SCH ×3 (09:04→16:10)
[2017-02-28] MEDS: levETIRAcetam 500 MG TAB PO SCH ×3 (09:05→16:10)
[2017-02-28] MEDS: busPIRone 5 MG TAB PO SCH ×2 (09:06→21:06)
[2017-02-28] MEDS: QUEtiapine FUMARATE 100 MG TAB PO SCH ×2 (09:06→21:05)
--- NOTE | 2017-02-28 09:06 | NUR ---
DUE MEDICATIONS GIVEN, PT TOLERATED WELL, 1:1 SITTER IS AT BEDSIDE.
[2017-02-28] MEDS: LACTULOSE 20 GM/30 ML UDC PO SCH ×2 (09:07→21:04)
[2017-02-28] MEDS: DOCUSATE SODIUM 100 MG GELCAP PO SCH ×2 (09:25→21:05)
--- NOTE | 2017-02-28 10:37 | NUR ---
CM NOTE SPOKE WITH LOUIE OF [facility]# [phone] AND SHE SAID NO ACCEPTING FACILITY AND NO AVAILABLE BEDS AT THIS TIME. PER LOUIE, PATIENT HAS BEEN DECLINED AT [facility] BECAUSE THEY CAN'T SAFELY MANAGE HER. PER LOUIE, [facility] HAS SENT INQUIRY TO [facility], [facility], [facility], [facility], [facility], [place], [facility], [facility], [facility], WARNER ROBINS OF [facility]. [facility] WAS GIVEN THE NUMBER TO THE NURSING FLOOR WHERE PATIENT IS IN CASE PATIENT GETS ACCEPTED AND BED BECOMES AVAILABLE AT A LATER TIME TODAY. CHARGE NURSE TOMY VILLANUEVA.
--- NOTE | 2017-02-28 11:20 | NUR ---
PT SLEEPING IN BED AT THIS TIME, SITTER IS AT BEDSIDE.
[2017-02-28] MEDS: IBUPROFEN 800 MG TAB PO PRN (13:43)
[2017-02-28] MEDS: MAGNESIUM HYDROXIDE 2400 MG/30 ML UDC PO PRN (13:47)
[2017-02-28 16:00] VITALS: BP 120/68
--- NOTE | 2017-02-28 19:30 | NUR ---
ENDORSED PT TO ASSISTANT SUPERINTENDENT NURSE FOR CONTINUITY OF CARE, PT STABLE AT THIS TIME.
--- NOTE | 2017-02-28 19:31 | NUR ---
RECD. RESTING IN BED, AWAKE, A/OX4. RESPIRATION EVEN AND UNLABORED. MEDIPORT AT THE RIGHT UPPER CHEST IN PLACED, INTACT. PLAN OF CARE FOR THE SHIFT DISCUSSED. DENIES PAIN 0/10. ON 1:1 SITTER NEAR DOOR, MONITORING PATIENT.
--- NOTE | 2017-02-28 20:15 | NUR ---
COMPLAINING IN A LOUD VOICE THAT SHE VOMITED SIX TIMES AND ZOFRAN DOES NOT WORK FOR HER, WANTS BENADRYL BY IVP, STATED BENADRYL IS THE ONLY MEDICATION THAT HELPS HER. EXPLAINED BENADRYL IS FOR SLEEP AND ITCHINESS BUT WILL INFORM RESIDENT ON DUTY.
--- NOTE | 2017-02-28 20:15 | NUR ---
DR. CALDERON CAME TO PATIENT'S ROOM AND SPOKE WITH PATIENT, WILL ORDER PHENERGAN FOR PATIENT.
[2017-02-28] MEDS ORDERED: PROMETHAZINE 25 MG TAB PO SCH (20:35)
--- NOTE | 2017-02-28 20:35 | NUR ---
MOYERGDOMINIC PO UNABLE TO BE OVERRIDE BY CHELSEA NURSE PATTERN STAMPER. INFORMED RESIDENT,
[2017-02-28] MEDS: AMITRIPTYLINE 25 MG TAB PO SCH (21:05)
--- NOTE | 2017-02-28 21:05 | NUR ---
UPSET BECAUSE UNABLE TO GET PHENERGAN, MEDICATED WITH ALL DUE MEDICATIONS FOR THE NIGHT INCLUDING PO BENADRYL.
--- NOTE | 2017-02-28 21:14 | NUR ---
Patient's Plan of Care was discussed and reviewed with STAFF DEVELOPER: SHIRLEY WARREN
--- NOTE | 2017-02-28 22:05 | NUR ---
SLEEPING COMFORTABLY IN BED.
[2017-03-01] VITALS: BP 125/65
[2017-03-01] MEDS: HYDROcodone/APAP 5/325 MG 1 TAB TAB PO PRN ×4 (03:44→21:37)
[2017-03-01] MEDS: ONDANSETRON 4 MG/2 ML VIAL IVP PRN (04:06)
--- NOTE | 2017-03-01 04:06 | NUR ---
STATED FEELING NAUSEATED. MEDICATED WITH ZOFRAN 4 MG. IVP BY SUMA GUTIERREZ.
--- NOTE | 2017-03-01 04:36 | NUR ---
NO NAUSEA, SLEEPING COMFORTABLY IN BED.
[2017-03-01] MEDS: PANTOPRAZOLE 40 MG TABEC PO SCH (06:43)
--- NOTE | 2017-03-01 06:50 | NUR ---
STILL SLEEPING COMFORTABLY IN BED, WANTS TO TAKE PROTONIX LATER. CONDITION REMAIN STABLE. 1:1 SITTER MONITORING PATIENT. WILL ENDORSE TO AM NURSE FOR CONTINUITY OF CARE.
--- NOTE | 2017-03-01 07:15 | NUR ---
RECEIVED REPORT FROM LEAD GENERATION REPRESENTATIVE NURSE, PT IS SLEEPING IN BED, BUT EASILY AWAKEN, PT IS A/OX4, AMBULATORY, PT HAS MEDIPORT ON THE RIGHT UPPER CHEST, NO S/S OF RESPIRATORY DISTRESS OR DISCOMFORT NOTED, SAFETY/FALL/SUICIDE PRECAUTIONS ARE IN PLACE, 1:1 SITTER IS AT BEDSIDE, WILL CONTINUE TO MONITOR.
[2017-03-01 08:00] VITALS: BP 122/64
[2017-03-01] MEDS ORDERED: PROMETHAZINE 25 MG TAB PO PRN (09:00)
[2017-03-01] MEDS: QUEtiapine FUMARATE 100 MG TAB PO SCH ×2 (09:44→21:05)
--- NOTE | 2017-03-01 09:44 | NUR ---
DUE MEDICATIONS GIVEN, PT TOLERATED WELL, 1:1 SITTER IS AT BEDSIDE.
[2017-03-01] MEDS: PREGABALIN 50 MG CAP PO SCH ×3 (09:45→15:49)
[2017-03-01] MEDS: busPIRone 5 MG TAB PO SCH ×2 (09:45→21:05)
[2017-03-01] MEDS: DOCUSATE SODIUM 100 MG GELCAP PO SCH ×2 (09:45→21:04)
[2017-03-01] MEDS: LACTULOSE 20 GM/30 ML UDC PO SCH ×2 (09:46→21:04)
[2017-03-01] MEDS: levETIRAcetam 500 MG TAB PO SCH ×3 (09:48→15:49)
[2017-03-01] MEDS: ONDANSETRON 4 MG ODT SL PRN ×3 (10:40→21:41)
--- NOTE | 2017-03-01 11:10 | NUR ---
PT RESTING IN BED, READING A MAGAZINE, 1:1 SITTER IS AT BEDSIDE.
[2017-03-01] MEDS: IBUPROFEN 800 MG TAB PO PRN ×2 (11:50→17:06)
--- NOTE | 2017-03-01 13:30 | NUR ---
PT RESTING IN BED, READING A MAGAZINE, SITTER IS AT BEDSIDE.
[2017-03-01] MEDS: MAGNESIUM HYDROXIDE 2400 MG/30 ML UDC PO PRN (13:49)
--- NOTE | 2017-03-01 15:06 | NUR ---
PT ASKING FOR A RAZOR TO SHAVE. I LET THE PATIENT KNOW WE COULD NOT GIVE HER A RAZOR UNDER THE CIRCUMSTANCES SHE WAS ADMITTED BY. PATIENT STATED IT WAS HER RIGHT TO SHAVE AND SHE WAS NOT GOING TO KILL HERSELF WITH A RAZOR, I LET THE PATIENT KNOW WE DID NOT USE RAZORS ON PATIENT FOR SAFETY/POSSIBLE INFECTION REASONS.
[2017-03-01 16:00] VITALS: BP 119/83
--- NOTE | 2017-03-01 17:00 | NUR ---
PER DR. CAVAZOS AND DR. ALVAREZ THEY WILL NOT ORDER ANYTHING IV AT THIS TIME. ALL MEDS ARE PO.
--- NOTE | 2017-03-01 19:17 | NUR ---
ENDORSED PT TO KEY ACCOUNT DIRECTOR NURSE FOR CONTINUITY OF CARE, PT STABLE AT THIS TIME.
--- NOTE | 2017-03-01 19:18 | NUR ---
RECD. RESTING IN BED, AWAKE, A/OX4. RESPIRATION EVEN AND UNLABORED. MEDIPORT IN RIGHT UPPER CHEST INTACT. INQUIRED IF SHE HAS PLAN OF HURTING HERSELF AND OTHERS, STATED NO, BUT SHE JUST FELT ANXIOUS. PLAN OF CARE FOR THE SHIFT DISCUSSED. VERBALIZED UNDERSTANDING. DENIES PAIN 0/10. WILL CONTINUE TO MONITOR PATIENT BEING THE NURSE SITTER FOR THE SHIFT.
--- NOTE | 2017-03-01 20:00 | NUR ---
Patient's Plan of Care was discussed and reviewed with FLATWORK TIER: KELVIN
--- NOTE | 2017-03-01 20:00 | NUR ---
IN BED, READING SOME MAGAZINES.
--- NOTE | 2017-03-01 20:30 | NUR ---
NOTED SOME REDNESS ON LEFT SIDE OF FACE, STATED THAT SHE HAS LUPUS.
[2017-03-01] MEDS: AMITRIPTYLINE 25 MG TAB PO SCH (21:04)
--- NOTE | 2017-03-01 21:15 | NUR ---
INFORMED DR. CALDERON, PATIENT WANTS BENADRYL BY MEDIPORT AND PHENERGAN FOR VOMITING.
--- NOTE | 2017-03-01 21:20 | NUR ---
GETS SO UPSET WHEN MD DID NOT ORDER BENADRYL IV AND PHENERGAN BY IV. SAYS BAD WORDS IN A LOUD VOICE.
--- NOTE | 2017-03-01 21:25 | NUR ---
STARTED THROWING MAGAZINES ON THE FLOOR AND BANGING HER BED. STATED, "I DON'T LIKE IT HER". EXPLAINED THAT ATTENDING MD ORDERED NOT ADD ANY MORE NARCOTICS TO HER PRESENTLY ORDERED MEDICATIONS.
--- NOTE | 2017-03-01 21:37 | NUR ---
CALM DOWN, REQUESTED FOR PAIN MEDICATION AND BENADRYL PO.
--- NOTE | 2017-03-01 22:10 | NUR ---
SLEEPING COMFORTABLY IN BED.
[2017-03-02] VITALS: BP 123/82
--- NOTE | 2017-03-02 00:10 | NUR ---
WOKE UP AND WENT TO BR TO VOID, BACK TO BED AFTER VOIDING.
--- NOTE | 2017-03-02 04:50 | NUR ---
AWAKE, WENT TO BR, BACK TO BED AFTER VOIDING.
[2017-03-02] MEDS: HYDROcodone/APAP 5/325 MG 1 TAB TAB PO PRN ×3 (04:53→16:59)
--- NOTE | 2017-03-02 05:18 | NUR ---
SLEEPING COMFORTABLY IN BED.
--- NOTE | 2017-03-02 06:10 | NUR ---
AWAKE, READING MAGAZINES IN BED. NO NOTED SUICIDAL BEHAVIOR. SAFETY MAINTAINED. NEW 1:1 SITTER MONITORING PATIENT. WILL ENDORSED TO AM NURSE FOR CONTINUITY OF CARE.
[2017-03-02] MEDS: PANTOPRAZOLE 40 MG TABEC PO SCH (06:46)
--- NOTE | 2017-03-02 07:26 | NUR ---
ENDORSED TO SUMA HAYWOOD FOR CONTINUITY OF CARE.
--- NOTE | 2017-03-02 07:27 | NUR ---
ENDORSEMENT RECEIVED FROM PARADI TENDER NURSE. PATIENT IS AWAKE, ALERT. RESPIRATION EVEN, UNLABOR. SKIN DRY AND WARM. CALL LIGHT WITHIN REACH. WILL CONTINUE TO MONITOR
--- NOTE | 2017-03-02 08:00 | NUR ---
PATIENT REFUSED TO HAVE VS TAKEN, NOR HAVE ANY ASSESSMENT DONE ON HER. EXPLAINED THE RISK AND COMPLICATION TO THE PATIENT. WILL CONTINUE TO MONITOR
--- NOTE | 2017-03-02 08:30 | NUR ---
DR TERESA MADE ROUNDS WITH THE RESIDENTS , EXPLAINED TO THE PATIENT REGARDING HAVING PORT A CATH ACCESS NEEDLE IS HIGH RISK FOR INFECTION AND NEW ORDER TO REMOVE IT. PATIENT VERBALIZED UNDERSTANDING AND AGREED TO IT.
--- NOTE | 2017-03-02 08:45 | NUR ---
REMOVED THE SAVAGE NEEDLE FROM LJ CATH , PATIENT IS TOUCHING IT RUB IT SLIGHT REDNESS NOTED NO BLEEDING NOTED COVERED WITH 4X4 ,INSTRUCT PATIENT NOT TO TOUCH IT OR RUB IT PATIENT VERBALIZED UNDERSTANDING .
--- NOTE | 2017-03-02 09:03 | NUR ---
UPDATED CLINICAL INFORMATION FAXED TO [facility] PER AURELIO'S REQUEST.
--- NOTE | 2017-03-02 09:05 | NUR ---
PATIENT COMPLAINED PAIN AROUND THE LJ CATH SITE, STATED IT IS BLUISH, AND RED. APPROACHED PATIENT IN THE ROOM, ASKED HER TO SHOW THE SITE FOR EVALUATION. PATIENT REFUSED TO HAVE IT CHECKED. PATIENT STARTED SCREAMING AND YELLED AT STAFF. UNABLE TO CHECK THE SITE DUE TO PATIENT'S REFUSAL.
[2017-03-02] MEDS: LACTULOSE 20 GM/30 ML UDC PO SCH ×2 (09:23→21:10)
[2017-03-02] MEDS: levETIRAcetam 500 MG TAB PO SCH ×3 (09:24→16:59)
[2017-03-02] MEDS: busPIRone 5 MG TAB PO SCH ×2 (09:25→21:11)
[2017-03-02] MEDS: PREGABALIN 50 MG CAP PO SCH ×3 (09:25→16:59)
[2017-03-02] MEDS: QUEtiapine FUMARATE 100 MG TAB PO SCH ×2 (09:25→21:11)
[2017-03-02] MEDS: DOCUSATE SODIUM 100 MG GELCAP PO SCH ×2 (09:25→21:10)
[2017-03-02] MEDS: IBUPROFEN 800 MG TAB PO PRN ×2 (09:55→21:11)
--- NOTE | 2017-03-02 11:00 | NUR ---
LJ CATH SITE IS BRUISED, AND SWOLLEN., COVERED BY DRESSING. NO ACTIVE BLEEDING SEEN. PATIENT COMPLAINED PAIN AROUND THE SITE. DR. ALVAREZ WAS MADE AWARE
[2017-03-02] MEDS: ONDANSETRON 4 MG ODT SL PRN ×2 (12:09→18:10)
--- NOTE | 2017-03-02 12:15 | NUR ---
PATIENT AWAKE, ALERT. RESPIRATION EVEN, UNLABOR. NO DISTRESS NOTED AT THIS TIME. MEDS WERE GIVEN PER ORDER. WILL CONTINUE TO MONITOR
--- NOTE | 2017-03-02 14:07 | NUR ---
PATIENT COMPLAINED OF N/V, STATED SHE MIGHT HAVE BOWEL OBSTRUCTION. ASSESSMENT WAS DONE, BOWEL SOUND ACTIVE 4 QUADRANTS. ABDOMEN ROUND, SOFT AND NON TENDER. WILL CONTINUE TO MONITOR
[2017-03-02] MEDS: MAGNESIUM HYDROXIDE 2400 MG/30 ML UDC PO PRN (14:11)
--- NOTE | 2017-03-02 14:45 | NUR ---
CM NOTE PER AURELIO OF [facility]# [phone] THEY RE-SUBMITTED INQUIRY TO [facility], NO ACCEPTING FACILITY AND NO BEDS AVAILABLE AT THIS TIME. [facility] AWARE OF THE NUMBER TO THE NURSING FLOOR WHERE PATIENT IS IN CASE THERE IS AN ACCEPTING PSYCH FACILITY AND BED AVAILABLE AT A LATER TIME TODAY. CHARGE NURSE TOMY VILLANUEVA.
[2017-03-02 16:00] VITALS: BP 137/101
--- NOTE | 2017-03-02 16:00 | NUR ---
PATIENT AWAKE, ALERT. RESPIRATION EVEN, UNLABOR. COMPLAINED OF PAIN /10 GENERALIZED. WILL MEDICATE PER ORDER. WILL CONTINUE TO MONITOR
--- NOTE | 2017-03-02 18:15 | NUR ---
PATIENT IS AWAKE, ALERT, EATING DINNER. RESPIRATION EVEN, UNLABOR. NO DISTRESS NOTED AT THIS TIME. COMPLAINED OF NAUSEA. MEDICATION WAS GIVEN PER ORDER. WILL CONTINUE TO MONITOR
--- NOTE | 2017-03-02 19:25 | NUR ---
ENDORSEMENT GIVEN TO VACCINE SPECIALIST NURSE. PATIENT IS STABLE AT THIS TIME
--- NOTE | 2017-03-02 19:30 | NUR ---
RECEIVED REPORT FROM DAY RN, PATIENT RESTING IN BED, AWAKE ALERT ORIENTED X4, NO S/S OF DISTRESS NOTED, RESPIRATION EVEN AND UNLABORED, 1:1 SITTER AT BEDSIDE, SAFETY MEASURE ENSURED, WILL CONTINUE TO MONITOR.
[2017-03-02] MEDS: AMITRIPTYLINE 25 MG TAB PO SCH (21:10)
--- NOTE | 2017-03-02 21:25 | NUR ---
DUE MEDICATION GIVEN, PATIENT TOLERATED WELL, NO S/S OF DISTRESS NOTED, 1:1 SITTER AT BEDSIDE, WILL CONTINUE TO MONITOR.
[2017-03-02 23:50] VITALS: BP 134/93
--- NOTE | 2017-03-03 00:36 | NUR ---
NO CHANGE IN CONDITION, PATIENT IS SLEEPING AT THIS TIME, RESPIRATION EVEN AND UNLABORED, 1:1 SITTER AT BEDSIDE, SAFETY MEASURE ENSURED, WILL CONTINUE TO MONITOR.
--- NOTE | 2017-03-03 02:33 | NUR ---
PATIENT IS SLEEPING AT THIS TIME, RESPIRATION EVEN AND UNLABORED, 1:1 SITTER AT BEDSIDE, SAFETY MEASURE ENSURED, WILL CONTINUE TO MONITOR.
[2017-03-03] MEDS: HYDROcodone/APAP 5/325 MG 1 TAB TAB PO PRN ×4 (03:19→23:21)
--- NOTE | 2017-03-03 03:22 | NUR ---
PATIENT ASKED FOR NORCO, UPON PAIN ASSESSMENT, PATIENT RESTING IN BED AND STATED PAIN 8/10, NO S/S OF DISTRESS NOTED, RESPIRATION EVEN AND UNLABORED, EDUCATED ON THE SIDE EFFECT OF PAIN MEDICATION, PATIENT VERBALIZED UNDERSTANDING, WILL ADMINISTER NORCO ORDERED.
--- NOTE | 2017-03-03 06:24 | NUR ---
NO CHANGE IN CONDITION, PATIENT IS SLEEPING, RESPIRATION EVEN AND UNLABORED, 1:1 SITTER AT BEDSIDE, SAFETY MEASURE ENSURED, WILL CONTINUE TO MONITOR.
[2017-03-03] MEDS: PANTOPRAZOLE 40 MG TABEC PO SCH (06:46)
--- NOTE | 2017-03-03 07:03 | NUR ---
ENDORSED PLAN OF CARE TO DAY RN, PATIENT IS STABLE, NO S/S OF DISTRESS NOTED.
--- NOTE | 2017-03-03 07:04 | NUR ---
ENDORSEMENT RECEIVED FROM TYPE SOLDERING MACHINE TENDER NURSE. PATIENT'S RESPIRATION EVEN, UNLABOR. SKIN DRY AND WARM. WILL CONTINUE TO MONITOR
--- NOTE | 2017-03-03 08:00 | NUR ---
PATIENT REFUSED TO HAVE VS TAKEN, STATED "I DON'T FEEL LIKE IT". WILL CONTINUE TO MONITOR
[2017-03-03] MEDS: busPIRone 5 MG TAB PO SCH ×2 (09:28→20:18)
[2017-03-03] MEDS: LACTULOSE 20 GM/30 ML UDC PO SCH ×2 (09:28→20:17)
[2017-03-03] MEDS: levETIRAcetam 500 MG TAB PO SCH ×3 (09:29→16:24)
[2017-03-03] MEDS: QUEtiapine FUMARATE 100 MG TAB PO SCH ×2 (09:29→20:18)
[2017-03-03] MEDS: PREGABALIN 50 MG CAP PO SCH ×3 (09:29→16:24)
[2017-03-03] MEDS: DOCUSATE SODIUM 100 MG GELCAP PO SCH ×2 (09:30→20:18)
[2017-03-03] MEDS: ARIPiprazole 10 MG TAB PO SCH (09:35)
[2017-03-03] MEDS ORDERED: ARIPiprazole 10 MG TAB PO SCH (09:45)
--- NOTE | 2017-03-03 10:17 | NUR ---
PATIENT STATED SHE WANTED TO TAKE ABILIFY LATER WITH LUNCH.
[2017-03-03] MEDS: IBUPROFEN 800 MG TAB PO PRN ×2 (12:18→20:18)
[2017-03-03] MEDS: ONDANSETRON 4 MG ODT SL PRN (12:18)
--- NOTE | 2017-03-03 13:12 | NUR ---
ENDORSEMENT GIVEN TO JOSE RCUZ MOISE. PATIENT IS STABLE AT THIS TIME
--- NOTE | 2017-03-03 13:15 | NUR ---
RECEIVED PATIENT REPORT FROM YOBANY RN. PATIENT IS RESTING COMFORTABLY IN BED. PATIENT IS AAOX3 AND SHOWS NO S/S OF ACUTE DISTRESS ON ROOM AIR. SKIN INTACT. NO IV ACCESS AT THIS TIME PER RN. THE BED IS IN LOW POSITION WITH CALL LIGHT WITHIN REACH. PATIENT IS AWARE OF POC FOR TODAY. WILL CONTINUE TO MONITOR.
[2017-03-03] MEDS: MAGNESIUM HYDROXIDE 2400 MG/30 ML UDC PO PRN (13:59)
--- NOTE | 2017-03-03 14:02 | NUR ---
PATIENT C/O CONSTIPATION. LBM PATIENT STATED WAS ON 03/01/17. GAVE MOM ORDERED FOR CONSTIPATION.
--- NOTE | 2017-03-03 15:30 | NUR ---
PATIENT C/O GENERALIZED PAIN AND ITCHINESS. PATIENT WAS GIVEN PRN ORDERED MEDICATION FOR SEVERE PAIN AND ITCHINESS. WILL REASSESS PAIN IN ONE HOUR.
[2017-03-03 16:00] VITALS: BP 129/79
--- NOTE | 2017-03-03 16:30 | NUR ---
ADMINISTERED SCHEDULED MEDICATIONS. PATIENT IS COOPERATIVE. PATIENT SWALLOWED MEDICATIONS WITHOUT DIFFICULTY. ALL NEEDS MET AT THIS TIME. WILL CONTINUE TO MONITOR.
--- NOTE | 2017-03-03 19:10 | NUR ---
GAVE PATIENT REPORT TO NIGHT NURSE. PATIENT ENDORSED IN STABLE CONDITION.
--- NOTE | 2017-03-03 19:15 | NUR ---
RECEIVED REPORT FROM DAY RN, PATIENT RESTING IN BED, NO S/S OF DISTRESS NOTED, RESPIRATION EVEN AND UNLABORED, CALL LIGHT WITHIN REACH, SAFETY MEASURE ENSURED, WILL CONTINUE TO MONITOR.
--- NOTE | 2017-03-03 20:11 | NUR ---
PATIENT IS STANDING IN FRONT OF THE NURSE'S STATION, " I WANT MOTRIN." PAIN ASSESSMENT DONE, PATIENT STATED PAIN 7/10, AND PATIENT ALSO STATED," I WANT MOTRIN NOW, BECAUSE THEY GAME ME NORCO AROUND 3:30 PM, AND I WANT NORCO AROUND 9PM." ASSIST PATIENT BACK TO HER ROOM AND INFORMED HER PAIN MEDICATION WILL GIVE ORDERED. WILL CONTINUE TO MONITOR PATIENT.
[2017-03-03] MEDS: AMITRIPTYLINE 25 MG TAB PO SCH (20:18)
--- NOTE | 2017-03-03 22:19 | NUR ---
PATIENT IS SLEEPING AT THIS TIME. NO S/S OF DISTRESS NOTED, RESPIRATION EVEN AND UNLABORED, CALL LIGHT WITHIN REACH, SAFETY MEASURE ENSURED, WILL CONTINUE TO MONITOR.
--- NOTE | 2017-03-03 23:35 | NUR ---
PATIENT ASKED FOR NORCO, UPON PAIN ASSESSMENT, PAIN 8/10, BP 135/89, HR 96, WILL ADMINISTER NORCO ORDERED.
[2017-03-04] VITALS: BP 135/89
--- NOTE | 2017-03-04 02:10 | NUR ---
NO CHANGE IN CONDITION, PATIENT IS SLEEPING AT THIS TIME, RESPIRATION EVEN AND UNLABORED, CALL LIGHT WITHIN REACH, SAFETY MEASURE ENSURED, WILL CONTINUE TO MONITOR.
--- NOTE | 2017-03-04 04:19 | NUR ---
PATIENT IS SLEEPING AT THIS TIME, RESPIRATION EVEN AND UNLABORED, CALL LIGHT WITHIN REACH, SAFETY MEASURE ENSURED, WILL CONTINUE TO MONITOR.
[2017-03-04] MEDS: PANTOPRAZOLE 40 MG TABEC PO SCH (05:34)
[2017-03-04] MEDS: HYDROcodone/APAP 5/325 MG 1 TAB TAB PO PRN ×2 (05:35→11:10)
--- NOTE | 2017-03-04 07:15 | NUR ---
ENDORSED PLAN OF CARE TO DAY SHIFT NURSE. PATIENT IS IN STABLE CONDITION. NO S/S OF DISTRESS NOTED.
--- NOTE | 2017-03-04 07:15 | NUR ---
ASSUMED CONTINUITY OF CARE. NO SIGNS AND SYMPTOMS OF ACUTE DISTRESS NOTED. INITIAL ASSESSMENT DONE. PT. VERBALLY ABUSIVE. REFUSED IV INSERTION. NO SUICIDAL THOUGHTS OBSERVED. KEEP COMFORTABLE ON BED. CALL LIGHT WITHIN REACH.
[2017-03-04 08:00] VITALS: BP 125/95
--- NOTE | 2017-03-04 08:00 | NUR ---
Patient's Plan of Care was discussed and reviewed with CHEMICAL ECONOMIST: ALANA PEREZ. TARYN
--- NOTE | 2017-03-04 08:45 | NUR ---
GROUP OF RESIDENTS TOGETHER WITH CHARGE NURSE TOMY ROD MADE THEIR PT. ROUNDS AND EXPLAINED PT. ABOUT D/C. PT. VERBALLY ABUSIVE.
[2017-03-04] MEDS: LACTULOSE 20 GM/30 ML UDC PO SCH (08:54)
[2017-03-04] MEDS: QUEtiapine FUMARATE 100 MG TAB PO SCH (08:54)
[2017-03-04] MEDS: levETIRAcetam 500 MG TAB PO SCH (08:54)
[2017-03-04] MEDS: PREGABALIN 50 MG CAP PO SCH (08:55)
[2017-03-04] MEDS: ARIPiprazole 10 MG TAB PO SCH (08:55)
[2017-03-04] MEDS: DOCUSATE SODIUM 100 MG GELCAP PO SCH (08:55)
[2017-03-04] MEDS: busPIRone 5 MG TAB PO SCH (08:55)
--- NOTE | 2017-03-04 08:59 | NUR ---
SECURITY STAFF AND CHIROPRACTIC TEACHER -ZAIRA CAME AND SPOKE TO PT.. PT. REMAINED VERBALLY ABUSIVE.
[2017-03-04] MEDS: ONDANSETRON 4 MG ODT SL PRN (10:11)
--- NOTE | 2017-03-04 10:32 | NUR ---
03/04/17 RD FOLLOW UP COMPLETED PLEASE REFER TO NUTRITION PROGRESS NOTE UNDER CARE ACTIVITY FOR ESTIMATED NUTRITION NEEDS. RD RECOMMENDATIONS: 1. CONTINUE PUREED DIET MEDICALLY APPROPRIATE. 2. CONSULT RDN PRN. 3. RD WILL F/U 7 DAYS; LOW RISK. ISAIAS KUNZ MS, RDN
[2017-03-04] MEDS ORDERED: LYR50 PO ×2 (10:49)
[2017-03-04] MEDS ORDERED: QUET100T44 PO (10:49)
[2017-03-04] MEDS ORDERED: ELA25 PO (10:49)
[2017-03-04] MEDS ORDERED: BUS5 PO (10:49)
[2017-03-04] MEDS ORDERED: KEP500 PO (10:49)
--- NOTE | 2017-03-04 11:30 | NUR ---
EXPLAINED PT. ABOUT HOMELESS /COMMUNITY RESOURCES PACKET, AND HOMELESS PATIENT WAIVER FORM, PT. VERBALIZED UNDERSTANDING BUT REFUSED TO SIGN AND STATES "I"M NOT HOMELESS, I HAVE A PLACE TO LIVE IN [place]." INFORMED CHARGE NURSE TOMY ROD.
--- NOTE | 2017-03-04 12:40 | NUR ---
D/C HOME VIA WHEELCHAIR WITH ASSISTANCE FROM ELIAS ROD. AWAKE, ALERT, AND ORIENTED X4. SPEECH CLEAR. NO C/O PAIN. NO SOB, NOTED. IN STABLE CONDITION. TAXI VOUCHER PROVIDED TO PT. FROM SENIOR DEVELOPER. INFORMED CHARGE NURSE TOMY ROD.
== END 2017-03-04 12:40 | disposition home or self-care (01) | DRG 812 ==
LOC: MED 11:24 → MTU 17:09
PROVIDERS: ADMIT Family Medicine; ATTEND Family Medicine
DX: T42.4X2A Poisoning by benzodiazepines, intentional self-harm, initial encounter (principal); G92 Toxic encephalopathy; E44.0 Moderate protein-calorie malnutrition; F31.64 Bipolar disorder, current episode mixed, severe, with psychotic features; C18.9 Malignant neoplasm of colon, unspecified; D64.9 Anemia, unspecified; F11.20 Opioid dependence, uncomplicated; F15.20 Other stimulant dependence, uncomplicated; F13.129 Sedative, hypnotic or anxiolytic abuse with intoxication, unspecified; F41.1 Generalized anxiety disorder; M79.7 Fibromyalgia; F60.3 Borderline personality disorder; F12.90 Cannabis use, unspecified, uncomplicated; F17.210 Nicotine dependence, cigarettes, uncomplicated; E83.42 Hypomagnesemia; F41.0 Panic disorder [episodic paroxysmal anxiety]; G40.909 Epilepsy, unspecified, not intractable, without status epilepticus; Z15.09 Genetic susceptibility to other malignant neoplasm; Z91.14 Patient's other noncompliance with medication regimen; Z79.899 Other long term (current) drug therapy; Z59.0 Homelessness; Z88.0 Allergy status to penicillin; Z88.8 Allergy status to other drugs, medicaments and biological substances; Z91.041 Radiographic dye allergy status; Z90.49 Acquired absence of other specified parts of digestive tract; Z90.710 Acquired absence of both cervix and uterus; Z90.722 Acquired absence of ovaries, bilateral; Z68.23 Body mass index [BMI] 23.0-23.9, adult; Z91.5 Personal history of self-harm; Z85.830 Personal history of malignant neoplasm of bone; Z85.038 Personal history of other malignant neoplasm of large intestine; Y92.89 Other specified places as the place of occurrence of the external cause
CPT/HCPCS: 36415; 80053; 80305; 81003; 82140; 83735; 84100; 85025; 87081; 99285; G0480; G0482; J1885; J2405; J3475; J7030; Q0163; Q0169; S0119